=== PATIENT | male | born 1980 | race Caucasian/White ===

== ENCOUNTER 2024-02-28 11:07 | Emergency (ER) | payer OTHER, SELFPAY ==
--- NOTE | ~2024-02-28 | XR_ITS ---
Clinical Indication: Cough PA and lateral views of the chest: Comparison: None Findings: The lungs are clear, without evidence of focal consolidation or pleural effusion. Cardiome diastinal silhouette is within normal limits. Bones and soft tissues are unremarkable. Impression: Normal chest. Reviewed, dictated and finalized at location . Impression: Normal chest.
[2024-02-28 11:50] VITALS: BP 155/103; PULSE 70; RESP 18; TEMP 36.4; O2SAT 100
--- NOTE | 2024-02-28 12:21 | ED.URI ---
HPI - URI/Sore Throat General Chief Complaint: Upper Respiratory Infection Stated Complaint: sinus congestion Time Seen by Provider: 02/28/24 11:53 Related Data Allergies Allergy/AdvReac Type Severity Reaction Status Date / Time No Known Allergies Allergy Unverified 02/28/24 11:07 Course Vital Signs Vital signs: Vital Signs Temperature 36.4 C L 02/28/24 11:50 Pulse Rate 70 02/28/24 11:50 Respiratory Rate 18 02/28/24 11:50 Blood Pressure 155/103 H 02/28/24 11:50 Pulse Oximetry 100 02/28/24 11:50 Oxygen Delivery Room Air 02/28/24 11:50 Temperature 36.4 C L 02/28/24 11:50 Pulse Rate 70 02/28/24 11:50 Respiratory Rate 18 02/28/24 11:50 Blood Pressure 155/103 H 02/28/24 11:50 Pulse Oximetry 100 02/28/24 11:50 Oxygen Delivery Room Air 02/28/24 11:50 Discharge Plan Discharge Clinical Impression: Chronic congestion of paranasal sinus Patient Disposition: Home, Self-Care Condition: Stable Instructions: Antibiotic Form, Sinusitis (ED) Prescriptions: New prednisone 20 mg tablet 40 mg PO DAILY 5 Days Qty: 10 0RF pseudoephedrine HCl 30 mg tablet 30 mg PO Q4-6H PRN (Reason: nasal congestion) Qty: 48 0RF Rx Instructions: DNExceed 4 doses/24h amoxicillin-pot clavulanate 875-125 mg tablet 1 tablet PO Q12H Qty: 14 0RF amoxicillin-pot clavulanate 875-125 mg tablet 1 tablet PO Q12H Qty: 14 0RF prednisone 20 mg tablet 40 mg PO DAILY 5 Days Qty: 10 0RF pseudoephedrine HCl 30 mg tablet 30 mg PO Q4-6H PRN (Reason: nasal congestion) Qty: 48 0RF Rx Instructions: DNExceed 4 doses/24h Follow-up/Referrals: Hussain Aldana MD [Physician] - [facility],SIMON Dodson [Primary Care Provider] - Time of Disposition: 13:12
[2024-02-28] MEDS: dexAMETHasone SOD PHOS INJ 10 MG/ML 1 ML VIAL IM (12:32)
[2024-02-28 13:35] VITALS: BP 144/92; PULSE 71; RESP 19; TEMP 36.7; O2SAT 99
== END 2024-02-28 13:36 | disposition home or self-care (01) ==
PROVIDERS: Emergency Provider Nurse Practitioner Family; PCP Physician Assistant
DX: R09.81 Nasal congestion (principal)
CPT/HCPCS: 71046; 96372; 99283; J1100

== ENCOUNTER 2024-05-13 13:14 | Outpatient (CLI) | payer OTHER, SELFPAY ==
--- NOTE | ~2024-05-13 | CT_ITS ---
EXAMINATION: CT soft tissue neck w con DATE: 05/13/2024 13:48 INDICATION: Chronic ethmoid sinusitis. TECHNIQUE: Computed tomography (CT) of the neck was performed with 75 mL Omnipaque-350 intravenous co ntrast. Automated exposure control and iterative reconstruction technique were employed. The dose-tashi gth product was 606.21 mGy-cm. COMPARISON: None FINDINGS: There are no pathologically enlarged lymph nodes. There is mild plaque in the proximal inte rnal arteries is 0% stenosis relative to normal distal artery lumen diameters. There is a mucous rete ntion cyst in left maxillary sinus. There is mild mucosal thickening in the left anterior ethmoid sin uses. There is rightward deviation of the nasal septum. There is aj bullosa involving left middle turbinate. The ostiomeatal units are patent. The mastoid air cells are normal. IMPRESSION: 1. Mucous retention cyst in left maxillary sinus and mild mucosal thickening in the left anterior eth moid sinuses. 2. Rightward deviation of the nasal septum. Reviewed, dictated and finalized at location A. IMPRESSION: 1. Mucous retention cyst in left maxillary sinus and mild mucosal thickening in the left anterior ethmoid sinuses. 2. Rightward deviation of the nasal septum.
[2024-05-13 13:41] LABS: Estimated Glomerular Filt Rate > 60
== END 2024-05-13 13:15 | disposition home or self-care (01) ==
PROVIDERS: PCP Physician Assistant; Visit Provider Otolaryngology
DX: J32.2 Chronic ethmoidal sinusitis (principal); J38.7 Other diseases of larynx; J34.2 Deviated nasal septum
CPT/HCPCS: 70491; Q9967

== ENCOUNTER 2025-04-09 07:56 | Observation (INO) | payer SELFPAY ==
[2025-04-09] VITALS (9 sets, daily range): BP systolic 129–174; BP diastolic 75–106; PULSE 73–95; RESP 12–29; TEMP 36.5–36.7; O2SAT 94–100; BMI 28.9
--- NOTE | ~2025-04-09 | US_ITS ---
EXAMINATION: US pelvic limited DATE: 04/10/2025 09:48 INDICATION: Possible groin abscess. Patient reports a recently ruptured cystic lesion draining to the skin at this location. TECHNIQUE: Multiple grayscale and color Doppler images of the region of concern at the right groin we re obtained. COMPARISON: CT dated 04/09/2025 FINDINGS: Ill-defined region of reticular decreased echogenicity in the subcutaneous fat at the region of fidel rn. There is a hypoechoic tract extending towards the skin surface. No discrete fluid collection to s uggest abscess however this could represent inflammatory edema or residual phlegmonous change at the site of a reportedly recently drained cyst or abscess. No other abnormal masses or fluid collections identified. IMPRESSION: 1. Residual inflammatory stranding or phlegmonous change at the site of a reportedly recently rupture d and draining abscess. No residual abscess cavity appreciated. Reviewed, dictated and finalized at location B. IMPRESSION: 1. Residual inflammatory stranding or phlegmonous change at the site of a repor tedly recently ruptured and draining abscess. No residual abscess cavity apprec iated.
--- NOTE | ~2025-04-09 | CT_ITS ---
EXAMINATION: CT abdomen pelvis w con DATE: 04/09/2025 09:18 INDICATION: Epigastric pain TECHNIQUE: Computed tomography (CT) of the abdomen and pelvis was performed with 100 mL Omnipaque-350 intravenous contrast. Automated exposure control and iterative reconstruction technique were employe d. The dose-length product was 542.44 mGy-cm. COMPARISON: None FINDINGS: Mild dependent atelectasis in bilateral lower lobes. Heart size is normal. No pericardial or pleural effusion. Small sliding-type hiatal hernia versus wall distal esophageal wall thickening. Mild diffus e hepatic steatosis with focal sparing along the gallbladder fossa. Gallbladder, spleen, pancreas, bi lateral adrenal glands and kidneys are normal. Accessory right renal artery. There is some mild stran ding in the fat caudal to the duodenal bulb where there is some mild wall thickening and would favor sequela of duodenitis or peptic ulcer disease over acute interstitial pancreatitis. Bowels are otherw ise unremarkable with normal appendix. Bladder is normal. No free intraperitoneal gas or fluid. No pa thologically enlarged abdominal or pelvic lymphadenopathy. Minimal scattered degenerative skeletal ch anges. IMPRESSION: 1. Wall thickening of proximal duodenum with adjacent mild inflammatory stranding suspicious for eith er duodenitis or with differential including acute interstitial pancreatitis and would correlate with lipase levels. 2. Small sliding-type hiatal hernia versus distal esophageal wall thickening is as can be seen with r eflux esophagitis or sequela of vomiting. 3. Diffuse hepatic steatosis. Reviewed, dictated and finalized at location B. IMPRESSION: 1. Wall thickening of proximal duodenum with adjacent mild inflammatory strandi ng suspicious for either duodenitis or with differential including acute inters titial pancreatitis and would correlate with lipase levels. 2. Small sliding-type hiatal hernia versus distal esophageal wall thickening is as can be seen with reflux esophagitis or sequela of vomiting. 3. Diffuse hepatic steatosis.
--- OUTSIDE RECORDS SUMMARY | 2025-04-09 07:59 | XMS_ITS | Clinical Summary ---
Author Organization [facility] Address [address] [place] [address] Phone Care Team Providers Care Tape Recorder Repairer Name Role Phone Kenny Ramos Primary Care Provider [phone] Allergies No known active allergies Medications raNITIdine (ZANTAC) 150 MG Tablet Take 150 mg by mouth 2 times daily. Active metroNIDAZOLE (FLAGYL) 500 MG Tablet Take 1 Tab by mouth 3 times daily. 30 Tab 12/13/2017 Active dicyclomine (BENTYL) 20 MG Tablet Take 1 Tab by mouth every 6 hours. 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 Pulse 78 12/13/2017 10:15 AM 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 Temperature 36.8 C (98.2 F) 12/13/2017 8:01 AM 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 Respiratory Rate 18 12/13/2017 8:01 AM 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 Oxygen Saturation 99% 12/13/2017 10:15 AM 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 Inhaled Oxygen Concentration - - Weight 70.3 kg (155 lb) 12/13/2017 8:01 AM 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 Height 170.2 cm (5' 7) 12/13/2017 8:01 AM 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 Body Mass Index 24.28 12/13/2017 8:01 AM 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 Plan of Treatment Health Maintenance Due Date Last Done Comments Hepatitis C Virus (HCV) Screening 1979 TdaP Immunization 1979 Human Papillomavirus (HPV) Immunization (1 - Male 3-dose series) 1994 Hepatitis B Immunization (1 of 3 - 19+ 3-dose series) 1998 Cologuard 2024 Colonoscopy 2024 Colorectal Cancer Screening 2024 Immunochemical Fecal Occult Blood 2024 018 SARS-COV-2 Immunization ( season) 2024 01/13/2021 Influenza Immunization (Seas on Ended) 2025 Respiratory Syncytial Virus (RSV) Immunization (Adult) (1 - 1-dose 75+ series) 2054 Meningococcal Immunization (ACWY) Aged Out No longer eligible based on patient's age to complete this topic Pneumococcal Immunization Combined Aged Out No longer eligible based on patient's age to complete this topic Rotavirus Immunization Aged Out No lo nger eligible based on patient's age to complete this topic Procedures Procedure Name Priority Date/Time Associated Diagnosis Comments STOOL, OCCULT BLOOD, DIAGNOSTIC, VIA GUAIAC STAT 12/13/2017 8:22 AM 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 from Last 3 Months or Most Recently Relevant to Health Maintenance Results * (ABNORMAL) Stool Occult Blood - Diagnostic (12/13/2017 8:22 AM 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) OCCULT BLOOD DIAG Positive(A ) Negative 12/13/2017 8:40 AM 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 [facility] Stool specimen (specimen) Non-Phlebotomy Collection / Unknown 12/13/2017 8:22 AM 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 12/13/2017 8:30 AM 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 us Tacos Perla MD BODY FLUIDS & STOOLS ORDERABLES Final Result [facility] [address] [place] [address] from Last 3 Months or Most Recently Relevant to Health Maintenance Insurance [employer] Care Teams Tape Recorder Repairer Relationship Specialty Start Date End Date Kenny Ramos, CEDRIC [address] [place] [id number] PCP - General Physician Research Center Director 12/13/17
--- OUTSIDE RECORDS SUMMARY | 2025-04-09 07:59 | XMS_ITS | Clinical Summary ---
Author Organization 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 Gender Identity Not on file Sexual Orientation Not on file Plan of Treatment Health Maintenance Due Date Last Done Comments Colorectal Cancer Screening Colonoscopy (10 Years) 1979 Annual Physical 1982 Hepatitis C 1997 DTaP, Tdap and Td Vaccines ( 1 - Tdap) 1998 Hepatitis B Vaccines (1 of 3 - 19+ 3-dose series) 1998 COVID-19 Vaccine ( - 2023-2 5 season) 2024 HPV Vaccines Aged Out No longer eligi ble based on patient's age to complete this topic Meningococcal B Vaccine Aged Out No l onger eligible based on patient's age to complete this topic Meningococcal Vaccine Aged Out No carmine nick eligible based on patient's age to complete this topic Pneumococcal Vaccine: Pediat rics (0 to 5 Years) and At-Risk Patients (6 to 49 Years) Aged Out No longer eligible b ased on patient's age to complete this topic RSV Immunizations Under 20 Months Aged Out No longer eligible based on patient's age to complete this topic
--- OUTSIDE RECORDS SUMMARY | 2025-04-09 07:59 | XMS_ITS | Clinical Summary ---
Author Organization [facility] Address [address] [place] [address] Care Team Providers Care Singer And Unloader Name Role Phone Unavailable Primary Care Provider Unavailabl e Source Comments [facility],non-owned Affiliates and Associated Physician Practices is amultiple site organization consisting of ambulatory clinics and hospital sitesin [place], [place] and [place]. This disclosure is being madepursuant to the Care Everywhere program and may not contain all information available regarding this patient. Last updated 18.[facility] Allergies No known active allergies Medications * Be aware that medications may not be up to date on this document. Alwaysverify current medications with the patient. 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 Gender Identity Not on file Sexual Orientation Not on file Last Filed Vital Signs Vital Sign Reading Time Taken Comments Blood Pressure 112/70 03/21/2019 12:19 PM CDT Pulse 82 03/21/2019 12:19 PM CDT Temperature 37.2 C (98.9 F) 03/21/2019 12:19 PM CDT Respiratory Rate 17 03/21/2019 12:19 PM CDT Oxygen Saturation 95% 03/21/2019 12:19 PM CDT Inhaled Oxygen Concentration - - Weight 76.2 kg (168 lb) 03/21/2019 12:19 PM CDT Height 172.7 cm (5' 8) 03/21/2019 12:19 PM CDT Body Mass Index 25.54 03/21/2019 12:19 PM CDT Plan of Treatment Health Maintenance Due Date Last Done Comments COLOGUARD (AGES 45-75) - COL ON CA SCREENING 1979 COLON MONITORING 1979 COLONOSCOPY - COLON CA SCREENING 1979 CT COLONOGRAPHY - COLON CA SCREENING 1979 Colorectal Cancer Screening 1979 FIT - COLON CA SCREENING 1979 FLEX SIG - COLON CA SCREENING 1979 LIPID TESTING 1979 HIV SCREENING 1994 HEPATITIS C SCREENING 05/25/1997 DTAP/TDAP/TD VACCINES (1 - Tdap) 1998 HEPATITIS B VACCINE (1 of 3 - 19+ 3-dose series) 1998 COVID-19 VACCINE ( - 2023-2 5 season) 2024 DEPRESSION SCREENING 10/09/2024 INFLUENZA VACCINE (Season Ended) 2025 ZOSTER VACCINE (1 of 2) 2029 HIB VACCINE Aged Out No longer eligi ble based on patient's age to complete this topic HPV VACCINE Aged Out No longer eligi ble based on patient's age to complete this topic MENINGOCOCCAL (Group B) VACC INE SHARED DECISION-MAKING Aged Out No longer eligibl e based on patient's age to complete this topic MENINGOCOCCAL GROUPS A/C/Y/W VACCINE Aged Out No longer eligible b ased on patient's age to complete this topic PNEUMOCOCCAL VACCINE Aged Out No long er eligible based on patient's age to complete this topic
--- OUTSIDE RECORDS SUMMARY | 2025-04-09 07:59 | XMS_ITS | Clinical Summary ---
Author Organization [facility] Address [address] [place] [address] Care Team Providers Care Legal Writing Professor Name Role Phone Kenny Ramos Primary Care Provider Allergies No known active allergies Medications HYDROcodone-acet aminophen (NORCO) 5-325 mg per tabletIndication s:Pain Take 1 tablet by mouth every 6 (six) hours as needed for pain 12 tablet 04/28/2022 Active Medical History Medical History Date Comments Asthma Social History Tobacco Use Types Packs/Day Years Used Date Smoking Tobacco: Never Smokeless Tobacco: Never Alcohol Use Standard Drinks/Week Comments Not Currently 0 (1 standard drink = 0.6 oz pur e alcohol) Personal Safety Answer Date Recorded Have you ever been in or are you currently in a harmful physical or emotional relationship or is someone making you feel afraid or unsafe? 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 Gender Identity Not on file Sexual Orientation Not on file Obstetrics History Last Filed Vital Signs Vital Sign Reading Time Taken Comments Blood Pressure 139/90 07/21/2023 10:20 PM CDT Pulse 96 07/21/2023 10:20 PM CDT Temperature 36.3 C (97.3 F) 07/21/2023 10:20 PM CDT Respiratory Rate 20 07/21/2023 10:20 PM CDT Oxygen Saturation 98% 07/21/2023 10:20 PM CDT Inhaled Oxygen Concentration - - Weight 81.6 kg (180 lb) 07/21/2023 10:20 PM CDT Height 170.2 cm (5' 7) 07/21/2023 10:20 PM CDT Body Mass Index 28.19 07/21/2023 10:20 PM CDT Plan of Treatment Health Maintenance Due Date Last Done Comments Colon Cancer Screening-Colonoscopy 1979 Depression Screening 1979 Hepatitis C Screening 1979 DTaP/Tdap/Td Vaccine (1 - Tdap) 1990 Hepatitis B Screening 1997 Regular Well Visit/Exam 18-64 1997 Covid-19 Vaccine (2 - 2023-2 5 season) 2024 01/13/2021 Influenza Vaccine (Season Ended) 2025 HPV Vaccines Aged Out No longer eligi ble based on patient's age to complete this topic Pneumococcal vaccine <65 Aged Out No longer eligible based on patient's age to complete this topic Insurance [employer] OTHER [employer] OTHER [employer] MD [id number] Care Teams Legal Writing Professor Relationship Specialty Start Date End Date Kenny Ramos PA [address] [place] [address] PCP - General 04/28/22
--- OUTSIDE RECORDS SUMMARY | 2025-04-09 07:59 | XMS_ITS | Data Portability ---
[facility] [address] [place] [address] Care Team Providers Care Psychology Teacher Name Role Phone CATHY RAMOS Primary Care Provider Assessment No assessment recorded. Plan of Treatment Reminders Order Date Submit Date Provider Last Modified By Organization Details Last Modified Time Details Appointments None recorded. Lab CBC 2022 023 [facility], [address] [place] [address], [facility] [address], [place], [address], 3 06:19:59 CMP, serum or plasma 2022 023 [facility], [address] [place] [address], [address], [place], [address], 3 06:19:58 lipid panel, serum 2022 023 [facility], [address] [place] [address], [address], [place], [address], 3 06:19:57 Referral None recorded. Procedures None recorded. Surgeries None recorded. Imaging None recorded. Medication Orders sulfametho xazole 800 mg-trimeth oprim 160 mg tablet 2024 025 [id number], [address], [place], [place], [id number], 5 14:46:10 valacyclov ir 1 gram tablet 2022 023 [id number], [address], [place], [place], [id number], 3 12:24:31 azithromyc in 500 mg tablet 2022 [facility] #[id number], [address], [place], [place], [id number], 5 14:30:07 azithromyc in 500 mg tablet 2022 [facility] #[id number], [address], [place], [place], [id number], 5 14:30:07 codeine 10 mg-guaifen esin 100 mg/5 mL oral liquid 2022 [facility] #[id number], [address], [place], [place], [id number], 3 12:04:09 Ventolin HFA 90 mcg/actuat ion aerosol inhaler 2022 [facility] #74755, [address], [place], [place], [id number], 3 10:39:34 Augmentin 875 mg-125 mg tablet 2020 [facility], [address] [place] [address], [address], [place], [address], 3 10:20:52 Medrol (Cortes) 4 mg tablets in a dose pack 2020 [facility], [address] [place] [address], [address], [place], [address], 3 10:21:00 Patient TargetsNo targets recorded. Patient Instructions Encounter Date Encounter Id Patient Instructions Last Modified By Organization Details Last Modified Time 09/25/2020 [id number] nausea and vomiting: care instructions jnanney Not available 09/25/2020 15:21:27 nausea and vomiting: care instructions jnanney Not available 09/25/2020 15:21:27 advised BRAT diet jnanney Not availabl e 09/25/2020 15:21:27 11/11/2020 [id number] strep throat: care instructions jnanney Not available 11/11/2020 11:00:17 08/03/2023 [id number] learning about high blood pressure jnanney Not available 08/03/2023 10:38:43 09/20/2023 [id number] genital herpes: care instructions jnanney Not available 09/20/2023 12:24:20 04/03/2025 [id number] A healthy lifestyle: care instructions jnanney Not available 04/03/2025 14:46:05 Reason for Referral None Reported. Results Created Date Observation Date Name Description Value Unit Range Abnormal Flag Note LastModifiedBy Organization Detail LastModifiedTime 08/03/2008/03/2023 LIPID PANEL cholesterol, total 236 mg/dL 100-19 9 above high normal Not Available [facility] & [address], [address], 08/04/2023 06:19:57 08/03/2008/03/2023 LIPID PANEL triglyceride s 371 mg/dL 0-149 above high normal Not Available [facility] & [address], [address], 08/04/2023 06:19:57 08/03/2008/03/2023 LIPID PANEL HDL cholesterol 43 mg/dL 40-[address] [facility] & [address], [address], 08/04/2023 06:19:57 08/03/2008/03/2023 LIPID PANEL VLDL cholesterol ronak 74 mg/dL 5-40 above high normal Not Available [facility] & [address], [address], 08/04/2023 06:19:57 08/03/20 23 08/03/2023 LIPID PANEL LDL chol calc ([facility]) 170 mg/dL 0-99 above high normal Not Available [address], [address], 08/04/2023 06:19:57 08/03/20 23 08/03/2023 COMP. METAB OLIC PANEL (14) glucose 143 mg/dL 70-99 above high normal Not Available [address], [address], 08/04/2023 06:19:57 08/03/2008/03/2023 COMP. METAB OLIC PANEL (14) BUN 14 mg/dL 6-24 Not Available [facility] & [address], [address], 08/04/2023 06:19:57 08/03/2008/03/2023 COMP. METAB OLIC PANEL (14) creatinine 0.95 mg/dL 0.76-1 .27 Not Available [address], [address], 08/04/2023 06:19:57 08/03/20 23 08/03/2023 COMP. METAB OLIC PANEL (14) eGFR 101 >=60 Units for eGFR value s are mL/mi n/1.7 3 The eGFR Calcu latio n has not been valid ated for patie nts under the age of 18. If test resul ts are displ ayed for a patie nt under the age of 18, disre karissa that value . Not Available [address], [address], 08/04/2023 06:19:57 08/03/20 23 08/03/2023 COMP. METAB OLIC PANEL (14) BUN/creatini ne ratio 15 9-20 Not Available [address], [address], 08/04/2023 06:19:57 08/03/2008/03/2023 COMP. METAB OLIC PANEL (14) sodium 140 mmol/ L 134-14 4 Not Available [address], [address], 08/04/2023 06:19:57 08/03/2008/03/2023 COMP. METAB OLIC PANEL (14) potassium 4.1 mmol/ L 3.5-5. 2 Not Available [address], [address], 08/04/2023 06:19:57 08/03/2008/03/2023 COMP. METAB OLIC PANEL (14) chloride 101 mmol/ L 96-106 Not Available [address], [address], 08/04/2023 06:19:57 08/03/2008/03/2023 COMP. METAB OLIC PANEL (14) carbon dioxide, total 25 mmol/ L 20-29 Not Available [address], [address], 08/04/2023 06:19:57 08/03/2008/03/2023 COMP. METAB OLIC PANEL (14) calcium 9.5 mg/dL 8.7-10 .2 Not Available [address], [address], 08/04/2023 06:19:57 08/03/2008/03/2023 COMP. METAB OLIC PANEL (14) protein, total 7.2 g/dL 6.0-8. 5 Not Available [address], [address], 08/04/2023 06:19:57 08/03/2008/03/2023 COMP. METAB OLIC PANEL (14) albumin 4.5 g/dL 4.1-5. 1 Not Available [address], [address], 08/04/2023 06:19:57 08/03/20 23 08/03/2023 COMP. METAB OLIC PANEL (14) globulin, total 2.7 g/dL 1.5-4. 5 Not Available [address], [address], 08/04/2023 06:19:57 08/03/2008/03/2023 COMP. METAB OLIC PANEL (14) A/G ratio 2.0 1.2-2. 2 Not Available [address], [address], 08/04/2023 06:19:57 08/03/20 23 08/03/2023 COMP. METAB OLIC PANEL (14) bilirubin, total 0.2 mg/dL 0.0-1. 2 Not Available [address], [address], 08/04/2023 06:19:57 08/03/20 23 08/03/2023 COMP. METAB OLIC PANEL (14) alkaline phosphatase 90 IU/L 44-121 Not Available [address], [address], 08/04/2023 06:19:57 08/03/20 23 08/03/2023 COMP. METAB OLIC PANEL (14) AST (SGOT) 26 IU/L 0-40 Not Available [address], [address], 08/04/2023 06:19:57 08/03/20 23 08/03/2023 COMP. METAB OLIC PANEL (14) ALT (SGPT) 31 IU/L 0-44 Not Available [facility] & [address], [address], 08/04/2023 06:19:57 08/03/2008/03/2023 CARDI OVASC ULAR REPOR T interpretati on Note Suppl ement al repor t is avail able. Not Available [address], [address], 08/04/2023 06:19:58 08/03/2008/03/2023 CARDI OVASC ULAR REPOR T pdf . Not Available [facility] & [address], [address], 08/04/2023 06:19:58 08/03/2008/03/2023 CBC, PLATE LET, NO DIFFE RENTI AL WBC 7.1 x10e3 /uL 3.4-10 .8 Not Available [address], [address], 08/04/2023 06:19:58 08/03/2008/03/2023 CBC, PLATE LET, NO DIFFE RENTI AL RBC 5.62 x10e6 /uL 4.14-5 .80 Not Available [address], [address], 08/04/2023 06:19:58 08/03/2008/03/2023 CBC, PLATE LET, NO DIFFE RENTI AL hemoglobin 16.0 g/dL 13.0-1 7.7 Not Available [address], [address], 08/04/2023 06:19:58 08/03/2008/03/2023 CBC, PLATE LET, NO DIFFE RENTI AL hematocrit 48.8 % 37.5-5 1.0 Not Available [address], [address], 08/04/2023 06:19:58 08/03/2008/03/2023 CBC, PLATE LET, NO DIFFE RENTI AL MCV 87 fL 79-97 Not Available [address], [address], 08/04/2023 06:19:58 08/03/2008/03/2023 CBC, PLATE LET, NO DIFFE RENTI AL MCH 28.5 pg 26.6-3 3.0 Not Available [address], [address], 08/04/2023 06:19:58 08/03/2008/03/2023 CBC, PLATE LET, NO DIFFE RENTI AL MCHC 32.8 g/dL 31.5-3 5.7 Not Available [address], [address], 08/04/2023 06:19:58 08/03/2008/03/2023 CBC, PLATE LET, NO DIFFE RENTI AL RDW 13.1 % 11.5-1 4.5 Not Available [address], [address], 08/04/2023 06:19:58 08/03/2008/03/2023 CBC, PLATE LET, NO DIFFE RENTI AL platelets 254 x10e3 /uL 150-45 0 Mean Plate let Volum e 9.8 fL 8.9-1 2.7 N Not Available [address], [address], 08/04/2023 06:19:58 08/03/2008/03/2023 CBC, PLATE LET, NO DIFFE RENTI AL NRBC 0 % 0-0 Not Available [address], [address], 08/04/2023 06:19:58 02/28/20 24 02/28/2024 XR, chest , 2 view No observ ation record ed. [facility] [address], [place], [address], 02/28/2024 15:10:15 05/13/20 24 05/13/2024 CT, neck, w/ contr ast No observ ation [facility] [address] [facility] [address], [place], [address], 05/13/2024 17:17:53 Result Notes None recorded. Problems No Known Problems Medical Equipment None Reported. Allergies No known drug allergies Medications Name Sig Start Date Stop Date Status Note LastModified by Organization Details LastModified Time Augmentin 875 mg-125 mg tablet Take 1 tablet every 12 hours by oral route for 10 days. 08/03 completed Not Available Not Available Not Available atorvastati n 20 mg tablet TAKE 1 TABLET BY MOUTH EVERY DAY 04/03 completed Not Available Not Available Not Available ibuprofen 800 mg tablet TAKE 1 TABLET BY MOUTH TWICE DAILY WITH FOOD OR MILK active Not Available Not Available No t Available valacyclovi r 1 gram tablet TAKE 1 TABLET BY MOUTH EVERY DAY FOR 7 DAYS. active Not Available Not Available No t Available hydrocodone 5 mg-acetamin ophen 325 mg tablet TAKE 1 TABLET BY MOUTH EVERY 6 HOURS NEEDED PAIN 08/03 completed Not Available Not Available Not Available Medrol (Cortes) 4 mg tablets in a dose pack Take 1 dose pk by oral route. 08/03 completed Not Available Not Available Not Available metronidazo le 500 mg tablet TAKE 1 TABLET BY MOUTH EVERY 12 HOURS FOR 7 DAYS active Not Available Not Available No t Available sulfamethox azole 800 mg-trimetho prim 160 mg tablet Take 1 tablet every 12 hours by oral route for 10 days. 2024 active Not Available Not Available Not Avai lable amoxicillin 500 mg tablet TAKE 1 TABLET BY MOUTH EVERY 12 HOURS FOR 7 DAYS active Not Available Not Available No t Available amoxicillin 875 mg tablet TAKE 1 TABLET BY MOUTH TWICE DAILY UNTIL GONE 08/03 completed Not Available Not Available Not Available codeine 10 mg-guaifene sin 100 mg/5 mL oral liquid TAKE 10 ML BY MOUTH EVERY 4 HOURS NEEDED 09/20 completed Not Available Not Available Not Available albuterol sulfate HFA 90 mcg/actuati on aerosol inhaler INHALE 2 PUFFS BY MOUTH EVERY 4 HOURS active Not Available Not Available No t Available naproxen 500 mg tablet TAKE 1 TABLET BY MOUTH TWICE DAILY FOR 30 DAYS 08/03 completed Not Available Not Available Not Available azithromyci n 500 mg tablet Take 1 tablet every day by oral route for 3 days. 04/03 completed Not Available Not Available Not Available ID NOW COVID-19 Test Kit TEST DIRECTED 08/03 completed Not Available Not Available Not Available Vitals Date Recorded Body weight Oxygen saturation Oxygen saturation in Arterial blood by Pulse oximetry Heart rate Body mass index (BMI) Body height Systolic blood pressure Diastolic blood pressure Provider Name and Address Organization Details Last Updated DateTime 5 63558.4 7 g 96 % 96 % 98 /min 31.3 kg/m2 170.18 cm 138 mm[Hg] 84 mm[Hg] Clarissa Cid MA [facility] 5 14:34:32 Date Recorded Systolic blood pressure Diastolic blood pressure Provider Name and Address Organization Details Last Updated DateTime 08/03/2023 138 mm[Hg] 78 mm[Hg] Cathy Ramos PA-C Attn: [address]ing[address] [place], [address], [facility] 08/03/2023 10:32:13 Date Recorded Body weight Body mass index (BMI) Body height Oxygen saturation Oxygen saturation in Arterial blood by Pulse oximetry Heart rate Provider Name and Address Organization Details Last Updated DateTime 3 40402.2 9 g 31 kg/m2 170.18 cm 96 % 96 % 91 /min Clarissa Cid MA [facility] 3 10:20:44 Date Recorded Body height Body mass index (BMI) Body weight Heart rate Respiratory rate Oxygen saturation Oxygen saturation in Arterial blood by Pulse oximetry Systolic blood pressure Diastolic blood pressure Provider Name and Address Organization Details Last Updated DateTime 3 170.18 cm 30.9 kg/m2 50130.8 g 90 /min 14 /min 95 % 95 % 133 mm[Hg] 83 mm[Hg] Nely Craig MA [place] [facility] 12:06:05 Social History Question Answer Notes LastModified by Organizat ion Details LastModified Time Tobacco Smoking Status Former Smoker Marijuana Clarissa Cid MA null, [place] [facility] 08/03/2023 10:21:48 What Is Your Level Of Caffeine Consumption? Heavy Information not available 09/25/2020 How Much Tobacco Do You Chew? None Information not available 09/25/2020 What Type Of Diet Are You Following? REGULAR Information not available 09/25/2020 Which Illicit Or Recreational Drugs Have You Used? Marijana Information not available 09/25/2020 Marital Status Informatio n not available 09/25/2020 What Was The Date Of Your Most Recent Tobacco Screening? 04/03/2025 Information not available 04/03/2025 What Is Your Relationship Status? Information not available 08/03/2023 How Much Tobacco Do You Smoke? No Information not available 09/25/2020 General Stress Level High Information not available 09/25/2020 Has Tobacco Cessation Counseling Been Provided? No Information not available 08/03/2023 On What Date Was Tobacco Cessation Counseling Provided? 04/03/2025 Information not available 04/03/2025 Sex: Male Functional Status Question Answer Note LastModified by Organizat ion Details LastModified Time Do you use any illicit or recreational drugs? Yes Marijuana Information not available 08/03/2023 Do you or have you ever used any other forms of tobacco or nicotine? No Information not available 08/03/2023 What is your level of alcohol consumption? Occasional 1 or 2 a week a drink of whiskey Information not available 09/25/2020 Do you or have you ever used smokeless tobacco? Never used smokeless tobacco Information not available 09/25/2020 Are you currently employed? 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 Never used electronic cigarettes Information not available 09/25/2020 Mental Status Question Answer Note LastModified by Organization D etails LastModified Time Do you feel stressed (tense, restless, nervous, or anxious, or unable to sleep at night)? [id number] Information not available 08/03/2023 Family History Nothing Reported. Medical History Condition Response Coronary Artery Disease N Other N High Blood Pressure N Atrial Fibrillation N Thyroid Problems N Kidney or Bladder Problems N GI Problems N Depression N COPD N Blood Clots N Skin Problems N Eating Disorder N Anemia N Heart Attack ([place]) N Diabetes N Anxiety Disorder N Muscle, Joint, or Bone Problems N Seizures/Epilepsy N Acid Reflux (GERD) N Cancer N Stroke N Asthma Y Allergies N ADHD N Substance Abuse N High Cholesterol N Hepatitis N Liver Disease N Schizophrenia N Headaches N Osteoporosis N Heart Failure N Immunizations Vaccine Type Date Status Note Provider Nam e and Address Organization Details Recorded Time COVID-19 vaccine, vector-nr, rS-Ad26, PF, 0.5 mL 01/13/2021 completed Not Available [facility] 14:25:37 Past Encounters Encounter ID Performer Location Encounter Start Date Encounter Closed Date Diagnosis/Indication Diagnosis SNOMED-CT Code Diagnosis ICD10 Code Diagnosis Note [id number] SAMANTHA Bhatia [facility] [address] [place] [address] 06/02/2016 15:37:52 06/03/2016 17:33:30 [id number] Mustapha Warren MD [facility] [address] [place] [address] 09/25/2020 12:04:53 09/25/2020 15:28:48 Nausea 107464107 R11.0 [id number] SAMANTHA Bhatia [address] [place] [address] 11/11/2020 09:45:00 11/19/2020 11:40:35 Streptococcal sore throat 03642275 J02.0 [id number] SAMANTHA Bhatia [address] [place] [address] 08/03/2023 10:01:38 08/07/2023 15:47:33 Acute bronchitis with bronchospasm 93200522 J20.8 Essential hypertension 45143003 I10 [id number] Cathy Ramos PA-C [facility] [address] [place] [address] 09/20/2023 11:58:10 09/25/2023 17:40:37 Acute bronchitis with bronchospasm 19850120 J20.8 Genital he rpes simplex 17403906 A60.02 [id number] Mustapha Warren MD [facility] [address] [place] [address] 04/03/2025 14:24:00 04/07/2025 09:33:55 Abscess 611092745 L02.91 Obese class I 5085103141 87477 E66.811 Health Concerns Section Related Observation LastModified by Organization Detai ls LastModified Time None Recorded Concern Status LastModified by Organization Details LastModified Time None Recorded Advance Directives Directive None Recorded Payers Insurance Date Sequence Insurance Name Policy Number Policy Apple Covered Member ID Apple Member ID Guarantor Name 04/03/2025 1 [employer] - MULTIPLAN (LIMITED BENEFIT PLAN) [id number] Syd [employer]pearl [id number] Syd [employer] 12/01/2023 1 [facility] [id number] [place] Carolann [id number] Syd [employer] 04/03/2025 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 Cathy Ramos PA-C Attn: [address] [place], [address], [facility] 09/25/2020 15:22:01 11/11/2020 text/html Sore throat, fever, swollen lymph nodes, body aches, decreased appetite that started 3 days ago. COVID test on 11/10 was negative. Throat is still a little sore when swallowing and has swollen lymph nodes.. other symptoms resolved. Patient had look in his throat for exudate but could not see anything as tonsils and mouth were so swollen. Also has a productive cough with clear phlegm. Dayquil helps a little. has similar symptoms but to a lesser extent. Hx of step throat as child and adult. Did not get flu shot this year. Cathy Ramos PA-C Attn: [address] [place], [place], [address] [place] [address], [facility] 11/11/2020 11:03:31 08/03/2023 text/html chest congestion and cough...cough syrup helps a little but cant sleep...no fever..only chest.. Cathy Ramos PA-C Attn: [address] [place], [place], [address] [place] [address], [facility] 08/03/2023 10:40:21 09/20/2023 text/html chest congestion for 2 months now...mucinex DM ongoing...doesnt feel badly though...also needs refill of valtrex Cathy Ramos PA-C Attn: [address] [place], [place], [address] [place] [address], [facility] 09/20/2023 12:25:42 04/03/2025 text/html has an abscess o n rt leg a week ago..no treatment yet..building a new house.. Cathy Ramos PA-C Attn: [address]ing[address] [place], [place], [address] [place] [address], [facility] 04/03/2025 14:46:46
--- OUTSIDE RECORDS SUMMARY | 2025-04-09 07:59 | XMS_ITS | Referral Summary ---
Author Organization [facility] Address [address] [place] [address] Care Team Providers Care Manager Telecom Name Role Phone Kenny Ramos Primary Care Provider [phone] Allergies No known active allergies Medications HYDROcodone-acet aminophen (NORCO) 5-325 mg per tabletIndication s:Pain Take 1 tablet by mouth every 6 (six) hours as needed for pain 12 tablet 04/28/2022 Active Social History Tobacco Use Types Packs/Day [...] on file Legal Sex Male 7:00 PM RN MDS Gender Identity Not on file Sexual Orientation [...] 07/21/2023 10:20 PM CDT Plan of Treatment Not on file Insurance MULTIPLAN CARE OTHER MULTIPLAN CARE OTHER COMMERCIAL GENERIC MD JOSHUA [id number] Care Teams Manager Telecom Relationship Specialty Start Date End Date Kenny Ramos PA [address] [place] [address] PCP - General 04/28/22
[2025-04-09] MEDS: SODIUM CHLORIDE 0.9% IV 1,000 ML 999 ML IV CONT ×2 (08:16→09:52)
[2025-04-09] MEDS: ONDANSETRON INJ 4 MG/2 ML VIAL IV PUSH ×4 (08:17→22:52)
[2025-04-09] MEDS: MORPHINE SULFATE (*CRX) 4 MG/ML INJ IV PUSH ×2 (08:18→12:26)
--- NOTE | 2025-04-09 08:26 | ED_ITS ---
HPI - General Adult General Chief complaint: Nausea/Vomiting/Diarrhea Stated complaint: N/V Time Seen by Provider: 04/09/25 07:59 History of Present Illness HPI narrative: Patient is a 44-year-old male who presents ER with epigastric pain. Significantly increased last night. Reports over last week he has been taking Tylenol and ibuprofen to treat dental pain. He has been started on Bactrim for dental infection. He started vomiting and having diarrhea. He thinks his stools dark black. No history of gastric ulcer. No history of pancreatitis. Denies fevers or chills or sweats. Pain is sharp in aching nonradiating. Patient reports field belch and then have severe reflux going up into his chest. No new abdominal distention. No history of abdominal surgery. Related Data Home Medications ?Medication ?Instructions ?Recorded ?Confirmed ?Last Taken ?Type esomeprazole magnesium 20 mg 40 mg PO DAILY 03/11/24 03/11/24 Unknown History capsule,delayed release (Nexium) Allergies Allergy/AdvReac Type Severity Reaction Status Date / Time No Known Allergies Allergy Verified 04/09/25 08:08 Review of Systems 2 Review of Systems: All systems reviewed & are unremarkable except as noted in HPI and below Constitutional: Constitutional: Reports no additional constitutional complaints ENT: Reports system reviewed and no additional complaints, except as documented Cardiovascular: Cardiovascular: Reports no additional cardiovascular complaints Respiratory: Respiratory: Reports no additional respiratory complaints Gastrointestinal: Gastrointestinal: Reports no additional gastrointestinal complaints Genitourinary: Genitourinary: Reports no additional male genitourinary complaints [facility] Past Medical History Medical History (Updated 04/09/25 @ 12:59 by Tod Glover MD) Asthma Surgical History Surgical History (Updated 04/09/25 @ 08:31 by Tod Glover MD) No history of previous surgery Social History Social History Smoking status: Former smoker Alcohol intake: current Substance use: current Substance use type: marijuana Do You Feel Safe in your Home?: Yes Lack of Transportation: No Lack of Food: Never True Current Housing: I Have Housing Concerned About Future Housing: No Difficulty Paying Gas/Electric Bills: No Difficulty Paying for Meds: No Currently Unemployed: No Education: High School Diploma/GED Difficulty w/ Childcare or Family Care: No Exam 2 Narrative: GENERAL: Uncomfortable-appearing, well-nourished, and in mild distress. HEAD: Normocephalic, atraumatic. ENT: Nares clear, no rhinorrhea or epistaxis. Mucous membranes moist. CHEST: Clear to auscultation. No respiratory distress. HEART: Regular rate and rhythm. No murmur heard. Normal peripheral pulses. ABDOMEN: Soft, mild epigastric tenderness, nondistended, normal active bowel sounds. Digital rectal exam with Hemoccult negative stool that is normal in appearance. EXTREMITIES: Normal range of motion. No edema. SKIN: Warm, dry, no rash. NEURO: Alert and oriented x3. PSYCH: Normal mood and affect. Course Course Emergency Course: Persistent pain despite 8 of morphine. Protonix given. GI consulted. Admit for observation the hospitalist service. Patient may be developing blood ulcer from NSAID use. Vital Signs Vital signs: Vital Signs Temperature 97.7 F 04/09/25 08:00 Pulse Rate 85 04/09/25 08:00 Respiratory Rate 20 04/09/25 08:00 Blood Pressure 174/106 H 04/09/25 08:00 Pulse Oximetry 94 04/09/25 08:00 Oxygen Delivery Room Air 04/09/25 08:00 Temperature 97.7 F 04/09/25 08:00 Pulse Rate 85 04/09/25 11:10 Respiratory Rate 13 04/09/25 11:10 Blood Pressure 129/75 04/09/25 11:10 Pulse Oximetry 96 04/09/25 11:10 Oxygen Delivery Room Air 04/09/25 08:00 Medical Decision Making Vital Signs Vital Signs: Vital Signs Temperature 97.7 F 04/09/25 08:00 Pulse Rate 85 04/09/25 08:00 Respiratory Rate 20 04/09/25 08:00 Blood Pressure 174/106 H 04/09/25 08:00 Pulse Oximetry 94 04/09/25 08:00 Oxygen Delivery Room Air 04/09/25 08:00 Temperature 97.7 F 04/09/25 08:00 Pulse Rate 85 04/09/25 11:10 Respiratory Rate 13 04/09/25 11:10 Blood Pressure 129/75 04/09/25 11:10 Pulse Oximetry 96 04/09/25 11:10 Oxygen Delivery Room Air 04/09/25 08:00 Lab Data 04/09/25 08:13 04/09/25 08:13 Labs: Lab Results 04/09/25 04/09/25 04/09/25 Range/Units 08:13 10:22 10:44 WBC 10.7 H (4.5-10.0) K/mm3 RBC 5.76 (4.6-6.20) M/mm3 Hgb 16.2 (14.0-18.0) g/dL Hct 46.9 (42.0-52.0) % MCV 81.4 (80-100) fl MCH 28.1 (26-34) pg MCHC 34.5 (32-36) g/dl RDW 12.5 (11.5-14.5) % Plt Count 370 (150-375) k/mm3 MPV 9.2 (7.4-10.4) fl Immature Gran % (Auto) 0.6 H (0-0.5) % Neut % (Auto) 76.8 H (45.5-73.1) % Lymph % (Auto) 17.2 L (18.3-44.2) % [place] % (Auto) 5.2 (2.6-8.5) % Eos % (Auto) 0.0 (0-4.4) % Baso % (Auto) 0.2 (0.2-1.2) % Lymph # (Auto) 1.84 (0.9-3.2) K/mm3 [place] # (Auto) 0.6 (0.1-0.6) K/mm3 Eos # (Auto) 0.0 (0-0.3) K/mm3 Baso # (Auto) 0.0 (0.0-0.1) K/mm3 Abs Immat Gran (auto) 0.06 H (0.00-0.031) K/mm3 Absolute Neuts (auto) 8.2 H (1.3-6.7) K/mm3 Absolute Nucleated RBC 0.000 (0.0-0.012) K/mm3 Nucleated RBC % 0.0 (0.0-0.2) % Sodium 134 L (137-145) mmol/L Potassium 3.8 (3.4-5.0) mmol/L Chloride 96 L (98-107) mmol/L Carbon Dioxide 17 L (22-30) mmol/L Anion Gap 21 H (4-12) mmol/L BUN 15 (9-20) mg/dL Creatinine 0.78 (0.7-1.3) mg/dL Estim Creat Clear Calc 104 ml/min Estimated GFR > 60 (59 - ) Glucose 345 H (65-110) mg/dL Lactic Acid 3.4 H 1.5 (0.7-2.0) mmol/L Calcium 9.7 (8.4-10.2) mg/dL Total Bilirubin 0.9 (0.2-1.3) mg/dL AST 71 H (17-59) U/L ALT 125 H (6-50) U/L Alkaline Phosphatase 121 (38-126) U/L Total Protein 8.6 H (6.3-8.2) g/dL Albumin 4.8 (3.5-5.1) g/dL Lipase 97 (23-300) U/L Urine Color Yellow (Yellow) Urine Appearance Clear (Clear) Urine pH 5.5 (5.0-9.0) Ur Specific [place] > 1.045 H (1.001-1.035) Urine Protein Trace (Negative) mg/dL Urine Glucose (UA) 3+ H (Negative) mg/dL Urine Ketones 4+ H (Negative) mg/dL Ur Blood (Man) Negative (Negative) Urine Nitrate Negative (Negative) Urine Bilirubin Negative (Negative) Urine Urobilinogen 0.2 (<2.0) mg/dL Leukocyte Esterase Rfl Negative (Negative) MARCO ANTONIO/UL Urine RBC 0-2 (0-2) /hpf Urine WBC 0-5 (0-3) /hpf Ur Squamous Epith Cells None seen (Few) /hpf Urine Bacteria None seen /hpf Urine Casts 0-2 Blood Type A Positive Antibody Screen Negative Discharge Plan Discharge Clinical Impression: Duodenitis, Acute epigastric pain, Vomiting Patient Disposition: Still a Patient Condition: Stable Patient Language: Angolan Prescriptions: No Action esomeprazole magnesium [Nexium] 20 mg capsule,delayed release(DR/EC) 40 mg PO DAILY prednisone 20 mg tablet 20 mg PO DAILY Qty: 14 1RF Rx Instructions: take 1 daily with breakfast for 10 days; then take 1 every other day for 8 days clindamycin HCl [Cleocin HCl] 300 mg capsule 300 mg PO BID Qty: 20 1RF Rx Instructions: take 1 b.i.d. prednisone 20 mg tablet 40 mg PO DAILY 5 Days Qty: 10 0RF pseudoephedrine HCl 30 mg tablet 30 mg PO Q4-6H PRN (Reason: nasal congestion) Qty: 48 0RF Rx Instructions: DNExceed 4 doses/24h amoxicillin-pot clavulanate 875-125 mg tablet 1 tablet PO Q12H Qty: 14 0RF Follow-up/Referrals: Rachel,SIMON Dodson [Primary Care Provider] -
[2025-04-09 08:33] LABS: Hematocrit 46.9 % (42.0-52.0); Hemoglobin 16.2 g/dL (14.0-18.0); Immature Granulocyte Percent A 0.6 % (0-0.5); Lymphocytes Absolute Auto 1.84 K/mm3 (0.9-3.2); Mean Corpuscular HGB Conc 34.5 g/dl (32-36); Mean Corpuscular Hemoglobin 28.1 pg (26-34); Mean Corpuscular Volume 81.4 fl (80-100); Nucleated Red Blood Cells Absolute Auto 0.000 K/mm3 (0.0-0.012); Nucleated Red Blood Cells Perc 0.0 % (0.0-0.2); Platelet Count Result 370 k/mm3 (150-375); Red Blood Count 5.76 M/mm3 (4.6-6.20); White Blood Count 10.7 K/mm3 (4.5-10.0)
[2025-04-09 08:45] LABS: Alanine Aminotransferase 125 U/L (6-50); Albumin Level 4.8 g/dL (3.5-5.1); Alkaline Phosphatase 121 U/L (38-126); Anion Gap 21 mmol/L (4-12); Aspartate Amino Transferase 71 U/L (17-59); Bilirubin,Total 0.9 mg/dL (0.2-1.3); Blood Urea Nitrogen 15 mg/dL (9-20); Calcium 9.7 mg/dL (8.4-10.2); Carbon Dioxide 17 mmol/L (22-30); Chloride 96 mmol/L (98-107); Estimated CRCL calculation 104 ml/min; Estimated Glomerular Filt Rate > 60; Glucose 345 mg/dL (65-110); Lipase 97 U/L (23-300); Potassium 3.8 mmol/L (3.4-5.0); Sodium 134 mmol/L (137-145); Total Protein 8.6 g/dL (6.3-8.2)
[2025-04-09] MEDS: PANTOPRAZOLE SODIUM IV 40 MG VIAL IV PUSH ×2 (09:52→18:00)
[2025-04-09] MEDS: SODIUM CHLORIDE 0.9% IV 600 ML 999 ML IV CONT (09:52)
[2025-04-09 10:34] LABS: Add Urine Microscopic? YES; Appearance Urine Clear (Clear); Glucose Urine UA 3+ mg/dL (Negative); Leukocyte Esterase Ur Negative LEU/UL (Negative); Nitrate Urine Negative (Negative); Non Pathogenic Casts 0-2; Specific Grav Ur > 1.045 (1.001-1.035)
--- NOTE | 2025-04-09 12:58 | P.HP_ITS ---
H&P: HPI History of Present Illness Date/Time: 04/09/25 12:58 Chief Complaint: Nausea and Vomiting Narrative: 44 y/o M with PMH of asthma presents here with nausea and vomiting. The patient presents here from home on 04/09 for further evaluation of nausea and vomiting. He reports he has been throwing up for the past 24 hours - started Monday. Nausea and vomiting are accompanied by abdominal distension. He denies fever, chills, body aches, constipation, diarrhea, fatigue. He reports GI a history significant for GERD. for which he is post take an ulcer medication but has not been compliant with this for the past month. Of note, he recently had a tooth that was causing issues. He he was started on antibiotics and has been taking ibuprofen 800 mg and Tylenol 1G rotating for the pain and had tooth pulled yesterday. He reports he was taking a lot of NSAIDs prior to the procedure. Initial VS at presentation: 97.7? F, HR 75, R 20, 174/106, and 94% on RA. ED workup showed: WBC 10.7, no anemia, sodium 134, creatinine 0.78 and GFR >60, glucose 345, initial lactic 3.4 -> 1.5, glucose 345, gap 21, and UA showed a high specific gravity with 3+ glucose and 4+ ketones. CT of the abdomen/ pel vis showed wall thickening of the proximal duodenum with adjacent mild inflammatory stranding suspicious for either duodenitis or acute interstitial pancreatitis, small sliding type hiatal hernia versus distal esophageal wall thickening, diffuse hepatic steatosis. Review of Systems Review of Systems: All systems reviewed & are unremarkable except as noted in HPI and below [facility] Past Medical History Medical History (Updated 04/09/25 @ 13:30 by Shaina Garcia APRN) Asthma Surgical History Surgical History (Updated 04/09/25 @ 08:31 by Tod Glover MD) No history of previous surgery Social History Social History Smoking status: Never smoker Alcohol intake: current Drinks per week: 1 Substance use: current Substance use type: marijuana Do You Feel Safe in your Home?: Yes Lack of Transportation: YES Lack of Food: Never True Current Housing: I Have Housing Concerned About Future Housing: No Difficulty Paying Gas/Electric Bills: No Difficulty Paying for Meds: No Currently Unemployed: No Education: High School Diploma/GED Difficulty w/ Childcare or Family Care: No Spiritual care concerns: No Meds Home Medications and Allergies Home Medications ?Medication ?Instructions ?Recorded ?Confirmed ?Type pseudoephedrine HCl 30 mg tablet 30 mg PO Q4-6H PRN nasal 02/28/24 04/09/25 Rx congestion #48 tabs esomeprazole magnesium 20 mg 40 mg PO DAILY 03/11/24 04/09/25 History capsule,delayed release (Nexium) Allergies Allergy/AdvReac Type Severity Reaction Status Date / Time No Known Allergies Allergy Verified 04/09/25 08:08 Vital Signs Vital Signs - 24 hr 04/09/25 08:00 04/09/25 08:07 04/09/25 08:59 Temperature 97.7 F Pulse Rate 85 95 86 Respiratory Rate 20 29 H 14 Blood Pressure 174/106 H 174/106 H 156/105 H Pulse Oximetry 94 96 97 Oxygen Delivery Room Air 04/09/25 09:02 04/09/25 09:51 04/09/25 11:10 Temperature Pulse Rate 92 92 85 Respiratory Rate 19 12 13 Blood Pressure 133/97 H 131/90 129/75 Pulse Oximetry 100 97 96 Oxygen Delivery Exam Const: General: comfortable and no acute distress Other: , male, nontoxic appearance HENMT: Face/Nose/Sinus: Normal nares present Mouth: Yes moist mucous membranes Eyes: General: appearance normal, both eyes and all related structures Sclera: sclerae normal Pupils: Equal, round and reactive pupils present EOM: EOMs intact bilaterally Resp: Effort & Inspection: normal respiratory effort Auscultation: clear to auscultation bilaterally Cardio: Rate: regular rate Rhythm: regular rhythm Other: S1-S2 present without murmur, rub, ectopy GI: Other: abdomen soft, mildly rounded, tender in the epigastric region. Normoactive bowel sounds in all quadrants. Skin: General skin exam: normal color and no rashes or lesions noted Wounds: no wounds Neuro: Speech: normal speech Motor exam (neuro): 5/5 motor strength present throughout Sensory Exam: normal sensation Other: A&O x4 Extrem: General: normal to inspection Psych: Mental Status: mental status grossly normal Affect: normal affect Other: good insight and judgment, pleasant H&P: Results Labs Labs: Short CBC 04/09/25 Range/Units 08:13 WBC 10.7 H (4.5-10.0) K/mm3 Hgb 16.2 (14.0-18.0) g/dL Hct 46.9 (42.0-52.0) % Plt Count 370 (150-375) k/mm3 BMP 04/09/25 08:13 Sodium 134 L Potassium 3.8 Chloride 96 L Carbon Dioxide 17 L BUN 15 Creatinine 0.78 Glucose 345 H Calcium 9.7 Liver Function 04/09/25 Range/Units 08:13 Total Bilirubin 0.9 (0.2-1.3) mg/dL AST 71 H (17-59) U/L ALT 125 H (6-50) U/L Alkaline Phosphatase 121 (38-126) U/L Albumin 4.8 (3.5-5.1) g/dL Urine 04/09/25 Range/Units 10:22 Urine Color Yellow (Yellow) Urine Appearance Clear (Clear) Urine pH 5.5 (5.0-9.0) Ur Specific [place] > 1.045 H (1.001-1.035) Urine Protein Trace (Negative) mg/dL Urine Glucose (UA) 3+ H (Negative) mg/dL Assessment and Plan Assessment and plan (1) Duodenitis: Code(s): K29.80 - Duodenitis without bleeding Status: Acute Assessment and Plan: - CT abdomen/pelvis: 1. Wall thickening of proximal duodenum with adjacent mild inflammatory stranding suspicious for either duodenitis or with differential including acute interstitial pancreatitis and would correlate with lipase levels. 2. Small sliding-type hiatal hernia versus distal esophageal wall thickening is as can be seen with reflux esophagitis or sequela of vomiting. 3. Diffuse hepatic steatosis. - Recent NSAID use and noncompliance with PPI -> raising concerns for possible ulcer development - GI consulted Mylanta every 2-3 hours as needed for pain -> patient reporting improvement clear liquid diet, NPO at midnight for EGD tomorrow for further guided therapy continue IV pantoprazole - start PPI b.i.d. - IV fluids, antiemetics p.r.n., analgesics p.r.n. - monitor renal function electrolytes - NPO (2) Vomiting: Qualifiers: Nausea presence: with nausea Vomiting type: unspecified Qualified Code(s): R11.2 - Nausea with vomiting, unspecified Code(s): R11.10 - Vomiting, unspecified Status: Acute Assessment and Plan: - likely secondary to duodenitis noted on CT/GERD, however may have mild DKA given gap, ketones in urine, and hypoglycemia. Will check beta hydroxy, repeat BMP, and A1c -> A1c significantly elevated, see below anion gap closed and beta hydroxy mildly elevated. - antiemetics p.r.n. (3) Hyperglycemia: Code(s): R73.9 - Hyperglycemia, unspecified Status: Acute Assessment and Plan: NEW DM - initial glucose 345, gap 21, UA showed 4+ ketones - given 3 L bolus in the ED, recheck BMP - check beta hydroxy, repeat BMP, and A1c -> beta hydroxy 0.73, A1c 10.8%, and anion gap closed - Patient denies any history of diabetes. Will consult dietitian and visual educator for further education. - hypoglycemia protocol - POC blood glucose ACHS and HS - correct regimen ordered - moderate dose TIDWM and HS based off BMI Plan Diet: NPO GI Prophylaxis: pantoprazole b.i.d. DVT Prophylaxis: SCDs IV fluids: 3L bolus -> 125 mL/hr Lines/Tubes: peripheral IV Code Status: full code Quality VTE Prophylaxis VTE prophylaxis: mechanical ordered Hospitalist [facility] Advance Care Plan I have confirmed that the patient's Advanced Care Plan is present, code status is documented, or surrogate decision maker is listed in patient medical record.: Yes Medication Reconciliation I have utilized all available resources to obtain, update and review the thierry ents current medications (includes all prescriptions, OTC, herbals, cannabis, and nutritional supplements).: Yes
[2025-04-09] MEDS: SODIUM CHLORIDE 0.9% IV 1,000 ML 125 ML IV CONT ×2 (13:14→21:31)
--- NOTE | 2025-04-09 14:05 | ADMGEN ---
This patient, Syd Bryant, was admitted to 2 Medical Room 261-01. Patient/family oriented to hospital policies and general routines including ID bracelet, bed and alarms, visiting hours, pain management, procedures, bathroom and other care routines, personal items, smoking policy, room service/diet, and visiting hours. Information on how to activate the Rapid Response Team has been discussed. Patient/Family are encouraged to report perceived risks to care and to ask questions if they do not understand what they are told or what they should do.
--- NOTE | 2025-04-09 15:13 | P.CONGI_ITS ---
Assessment and Plan Assessment and plan (1) Acute epigastric pain: Code(s): R10.13 - Epigastric pain Status: Acute Assessment and Plan: This patient's persistent epigastric pain is highly compatible with gastroduodenal injury secondary to prolonged NSAID use, even in the absence of obvious mucosal lesions. Given his history of frequent indigestion and GERD, it's reasonable to suspect gastric or duodenal ulcers, or erosive gastritis. Our immediate plan is to manage his pain and protect the gastric mucosa. We will administer Mylanta every 2-3 hours as needed for pain, as this will provide intraluminal relief and avoid systemic analgesics like morphine, which can complicate the clinical picture. We will also continue intravenous pantoprazole to suppress acid production. The patient will be offered a clear liquid diet until midnight. To definitively clarify the diagnosis and guide further therapy, an EGD will be performed tomorrow . GI Consult Note Consult date/time: 04/09/25 15:13 Reason for consult: Epigastric pain HPI: Syd Bryant is a 44-year-old male with a history of frequent indigestion, GERD, and abdominal bloating. He was in his usual state of health until approximately 10 days ago when he developed a toothache, for which he self- medicated with 3-4 ibuprofen tablets daily. Despite experiencing moderate to severe epigastric pain during this period, he continued ibuprofen use. Yesterday, following a tooth extraction, his epigastric pain acutely worsened and became associated with recurrent nausea and vomiting. He denies fever, melena, hematochezia, or hematemesis and has no prior history of EGD. Admission laboratory results were notable for a WBC of 8.7, Hgb 16.2, Hct 46.9, platelets 370, BUN 15, and creatinine 0.78. An abdominal CT scan revealed wall thickening of the proximal duodenum, consistent with possible duodenitis. Review of Systems 2 Review of Systems: All systems reviewed & are unremarkable except as noted in HPI and below PMFSH Past Medical History Medical History (Updated 04/09/25 @ 13:30 by Shaina Garcia APRN) Asthma Surgical History Surgical History (Updated 04/09/25 @ 08:31 by Tod Glover MD) No history of previous surgery Social History Social History Smoking status: Never smoker Alcohol intake: current Drinks per week: 1 Substance use: current Substance use type: marijuana Do You Feel Safe in your Home?: Yes Lack of Transportation: YES Lack of Food: Never True Current Housing: I Have Housing Concerned About Future Housing: No Difficulty Paying Gas/Electric Bills: No Difficulty Paying for Meds: No Currently Unemployed: No Education: High School Diploma/GED Difficulty w/ Childcare or Family Care: No Spiritual care concerns: No Meds Home Medications and Allergies Home Medications ?Medication ?Instructions ?Recorded ?Confirmed ?Type pseudoephedrine HCl 30 mg tablet 30 mg PO Q4-6H PRN nasal 02/28/24 04/09/25 Rx congestion #48 tabs esomeprazole magnesium 20 mg 40 mg PO DAILY 03/11/24 04/09/25 History capsule,delayed release (Nexium) Allergies Allergy/AdvReac Type Severity Reaction Status Date / Time No Known Allergies Allergy Verified 04/09/25 08:08 Vital Signs Vital Signs - 24 hr 04/09/25 08:00 04/09/25 08:07 04/09/25 08:59 Temperature 97.7 F Pulse Rate 85 95 86 Respiratory Rate 20 29 H 14 Blood Pressure 174/106 H 174/106 H 156/105 H Pulse Oximetry 94 96 97 Oxygen Delivery Room Air 04/09/25 09:02 04/09/25 09:51 04/09/25 11:10 Temperature Pulse Rate 92 92 85 Respiratory Rate 19 12 13 Blood Pressure 133/97 H 131/90 129/75 Pulse Oximetry 100 97 96 Oxygen Delivery 04/09/25 13:15 04/09/25 14:15 Temperature 97.8 F Pulse Rate 89 81 Respiratory Rate 15 18 Blood Pressure 137/97 H 150/95 H Pulse Oximetry 98 100 Oxygen Delivery Exam 2 Const: General: cooperative and healthy appearing Resp: Effort & Inspection: normal respiratory effort and able to speak in complete sentences Auscultation: clear to auscultation bilaterally Cardio: Rate: regular rate Rhythm: regular rhythm GI: Inspection: normal to inspection GI Palp: No No hepatosplenomegaly present Auscultation: normal bowel sounds Rectal Exam: deferred Skin: General skin exam: normal color Psych: Appearance: grossly normal Mental Status: mental status grossly normal Results Labs 04/09/25 08:13 04/09/25 08:13 Labs: Short CBC 04/09/25 Range/Units 08:13 WBC 10.7 H (4.5-10.0) K/mm3 Hgb 16.2 (14.0-18.0) g/dL Hct 46.9 (42.0-52.0) % Plt Count 370 (150-375) k/mm3 BMP 04/09/25 08:13 Sodium 134 L Potassium 3.8 Chloride 96 L Carbon Dioxide 17 L BUN 15 Creatinine 0.78 Glucose 345 H Calcium 9.7 Liver Function 04/09/25 Range/Units 08:13 Total Bilirubin 0.9 (0.2-1.3) mg/dL AST 71 H (17-59) U/L ALT 125 H (6-50) U/L Alkaline Phosphatase 121 (38-126) U/L Albumin 4.8 (3.5-5.1) g/dL Urine 04/09/25 Range/Units 10:22 Urine Color Yellow (Yellow) Urine Appearance Clear (Clear) Urine pH 5.5 (5.0-9.0) Ur Specific [place] > 1.045 H (1.001-1.035) Urine Protein Trace (Negative) mg/dL Urine Glucose (UA) 3+ H (Negative) mg/dL
[2025-04-09] MEDS: MAG HYDROX/AL HYDROX/SIMETH 30 ML UDC PO ×3 (15:28→21:43)
[2025-04-09 15:51] LABS: Hemoglobin A1C 10.8 % (<5.7)
[2025-04-09 17:03] LABS: Anion Gap 11 mmol/L (4-12); Blood Urea Nitrogen 12 mg/dL (9-20); Calcium 8.7 mg/dL (8.4-10.2); Carbon Dioxide 24 mmol/L (22-30); Chloride 103 mmol/L (98-107); Estimated CRCL calculation 113 ml/min; Estimated Glomerular Filt Rate > 60; Glucose 229 mg/dL (65-110); Potassium 3.8 mmol/L (3.4-5.0); Sodium 138 mmol/L (137-145)
[2025-04-09 17:10] LABS: Beta-Hydroxybutyrate/Acetoace. 0.73 mmol/L (0.02-0.27)
[2025-04-09] MEDS: oxyCODONE HCL (*CRX) 2.5 MG TAB IR PO (17:59)
[2025-04-10] VITALS (9 sets, daily range): BP systolic 137–158; BP diastolic 39–100; PULSE 71–88; RESP 14–24; TEMP 36.6–36.9; O2SAT 99–100
[2025-04-10] MEDS: MAG HYDROX/AL HYDROX/SIMETH 30 ML UDC PO ×4 (00:56→19:40)
--- NOTE | 2025-04-10 02:50 | ECG_ITS ---
Test Date: 2025-04-10 03:17:07 Measurements Intervals [place] Rate: 86 P: 52 FL: 143 QRS: 15 QRSD: 83 T: 35 QT: 370 QTc: 445 Interpretive Statements SINUS RHYTHM No previous ECG available for comparison Electronically Signed On 04-10-2025 16:39:33 CDT by Tita Nice
[2025-04-10] MEDS: ONDANSETRON INJ 4 MG/2 ML VIAL IV PUSH ×2 (03:19→14:40)
[2025-04-10] MEDS: BELLADONNA ALK/PHENOB ELIX 10 ML, MAG HYDROX/ALUMINUM HYD/SIMETH 30 ML, LIDOCAINE 2% VI... PO (03:23)
--- NOTE | 2025-04-10 04:17 | PM.EVENT ---
Event Note Event Note Event Note: I was called by this patient's nurse this morning at 0300 with complaints of the patient stating he was having a lot of epigastric pain. Patient has been admitted in the current setting suspected duodenitis and has been evaluated by GI services, Dr. Merino, who will be taking patient to GI lab today for an EGD. It is noted in GI note dated 04/09/2025 that they would prefer to avoid any systemic analgesics such as morphine. They note that it can cause complications in the current treatment. Patient does have oxy IR ordered p.o. as patient was having pain earlier a GI cocktail was ordered that did give the patient some temporary relief. He still complains of pain and the nurse again calls me at 0400 requesting IV pain medications patient does not want to take the oral medicine as it made him feel nauseated previously. She acknowledges that GI does not want the patient to have systemic analgesics such as morphine and asks what she should do. She is advised that patient should be offered his oral medication and treated for nausea along with at as I do not feel comfortable going against the recommendations of a specialist as he is currently under their care as well. Patient is noted to have stable vital signs with blood pressure 137/87, pulse 88, respirations 20, oxygen saturation of 100% on room air and he is afebrile.
[2025-04-10 05:33] LABS: Hematocrit 41.0 % (42.0-52.0); Hemoglobin 13.6 g/dL (14.0-18.0); Immature Granulocyte Percent A 0.5 % (0-0.5); Lymphocytes Absolute Auto 2.08 K/mm3 (0.9-3.2); Mean Corpuscular HGB Conc 33.2 g/dl (32-36); Mean Corpuscular Hemoglobin 27.9 pg (26-34); Mean Corpuscular Volume 84.2 fl (80-100); Nucleated Red Blood Cells Absolute Auto 0.000 K/mm3 (0.0-0.012); Nucleated Red Blood Cells Perc 0.0 % (0.0-0.2); Platelet Count Result 259 k/mm3 (150-375); Red Blood Count 4.87 M/mm3 (4.6-6.20); White Blood Count 11.0 K/mm3 (4.5-10.0)
[2025-04-10 05:52] LABS: Anion Gap 10 mmol/L (4-12); Blood Urea Nitrogen 13 mg/dL (9-20); Calcium 8.1 mg/dL (8.4-10.2); Carbon Dioxide 21 mmol/L (22-30); Chloride 104 mmol/L (98-107); Estimated CRCL calculation 125 ml/min; Estimated Glomerular Filt Rate > 60; Glucose 231 mg/dL (65-110); Sodium 135 mmol/L (137-145)
[2025-04-10 06:01] LABS: Magnesium 2.0 mg/dL (1.6-2.3); Potassium 3.6 mmol/L (3.4-5.0)
[2025-04-10] MEDS: SODIUM CHLORIDE 0.9% IV 1,000 ML 125 ML IV CONT ×2 (06:08→20:54)
--- NOTE | 2025-04-10 06:53 | WPDGIPROGNO ---
Progress Note: A&P Assessment and Plan (1) Acute epigastric pain: Code(s): R10.13 - Epigastric pain Status: Acute Assessment and Plan: Patient with severe epigastric pain episodes, presumably associated to prolonged ingestion of ibuprofen. Will continue to administer GI cocktail and scope later today. Subjective Date/time seen: 04/10/25 06:53 Interval history: Patient continued to have episodes of sharp epigastric pain, radiating to the chest. An EKG was obtained by the nursing staff and interpreted as normal. He states that GI cocktail relieves the symptoms at least partially. Exam Narrative: abdomen: Unchanged from baseline, no rebound tenderness, Objective Data Vital Signs Vital Signs: Vital Signs - 24 hr 04/09/25 08:00 04/09/25 08:07 04/09/25 08:59 Temperature 97.7 F Pulse Rate 85 95 86 Respiratory Rate 20 29 H 14 Blood Pressure 174/106 H 174/106 H 156/105 H Pulse Oximetry 94 96 97 Oxygen Delivery Room Air 04/09/25 09:02 04/09/25 09:51 04/09/25 11:10 Temperature Pulse Rate 92 92 85 Respiratory Rate 19 12 13 Blood Pressure 133/97 H 131/90 129/75 Pulse Oximetry 100 97 96 Oxygen Delivery 04/09/25 13:15 04/09/25 14:15 04/09/25 20:47 Temperature 97.8 F 98.1 F Pulse Rate 89 81 73 Respiratory Rate 15 18 20 Blood Pressure 137/97 H 150/95 H 135/83 Pulse Oximetry 98 100 100 Oxygen Delivery 04/09/25 21:34 04/10/25 02:54 04/10/25 04:47 Temperature 98.3 F 98.0 F Pulse Rate 88 76 Respiratory Rate 20 18 Blood Pressure 137/87 139/92 H Pulse Oximetry 100 99 Oxygen Delivery Room Air Intake/Output Intake/Output: Intake & Output 04/07/25 04/08/25 04/09/25 04/10/25 23:59 23:59 23:59 23:59 Intake Total 3940 1000 Balance 3940 1000 Meds/Results Medications: Active Medications Generic Name Dose Route Start Last Admin Trade Name Freq PRN Reason Stop Dose Admin Acetaminophen 1,000 mg 04/09/25 13:31 Acetaminophen 500 Mg Tablet PO Q6H PRN Mild Pain (1-3) or Fever Al Hydrox/Mg Hydrox/Simethicone 30 ml 04/09/25 15:13 04/10/25 06:48 Mag Hydrox/Al Hydrox/Simeth 30 Ml Udc PO 30 ml Q3H PRN Administration Indigestion Dextrose 12.5 gm 04/09/25 21:43 Dextrose 50% 25 Gm/50 Ml Syringe IV PUSH PRN PRN Hypoglycemia Protocol Glucagon 1 mg 04/09/25 21:43 Glucagon For Inj 1 Mg Vial IM PRN PRN Hypoglycemia Protocol Glucose 15 gm 04/09/25 21:43 Glucose Oral Gel 15 Gm Of Glucse In 37.5 Gm Tube PO PRN PRN Hypoglycemia Protocol Sodium Chloride 1,000 mls @ 125 mls/hr 04/09/25 12:55 04/10/25 06:08 Normal Saline Iv IV CONT 125 mls/hr .Q8H BRITTNY Administration Dextrose 1,000 mls @ 100 mls/hr 04/09/25 21:43 Dextrose 5% 1,000 Ml IVPB PRN PRN Hypoglycemia Protocol Insulin Aspart 3 - 6 units 04/10/25 08:00 Insulin Aspart (*Bkc) 100 Units/Ml SUB-Q TIDWM BRITTNY Protocol Insulin Aspart 1 - 3 units 04/10/25 21:00 Insulin Aspart (*Bkc) 100 Units/Ml SUB-Q HS BRITTNY Protocol Ondansetron HCl 4 mg 04/09/25 12:55 04/10/25 03:19 Ondansetron Inj 4 Mg/2 Ml Vial IV PUSH 4 mg Q4H PRN Administration Nausea Oxycodone HCl 2.5 mg 04/09/25 13:31 04/09/25 17:59 Oxycodone Hcl (*Crx) 2.5 Mg Tab Ir PO 2.5 mg Q4H PRN Administration Pain Rated 4-6 Pantoprazole Sodium 40 mg 04/09/25 17:00 04/09/25 18:00 Pantoprazole Sodium Iv 40 Mg Vial IV PUSH 40 mg BID BRITTNY Administration Radiology Results: ITS Impressions Abdomen/Pelvis CT 04/09/25 09:21 IMPRESSION: 1. Wall thickening of proximal duodenum with adjacent mild inflammatory stranding suspicious for either duodenitis or with differential including acute interstitial pancreatitis and would correlate with lipase levels. 2. Small sliding-type hiatal hernia versus distal esophageal wall thickening is as can be seen with reflux esophagitis or sequela of vomiting. 3. Diffuse hepatic steatosis. Labs Labs: Laboratory Results - last 24 hr 04/09/25 04/09/25 04/09/25 08:13 10:22 10:44 WBC 10.7 H RBC 5.76 Hgb 16.2 Hct 46.9 MCV 81.4 MCH 28.1 MCHC 34.5 RDW 12.5 Plt Count 370 MPV 9.2 Immature Gran % (Auto) 0.6 H Neut % (Auto) 76.8 H Lymph % (Auto) 17.2 L [place] % (Auto) 5.2 Eos % (Auto) 0.0 Baso % (Auto) 0.2 Lymph # (Auto) 1.84 [place] # (Auto) 0.6 Eos # (Auto) 0.0 Baso # (Auto) 0.0 Abs Immat Gran (auto) 0.06 H Absolute Neuts (auto) 8.2 H Absolute Nucleated RBC 0.000 Nucleated RBC % 0.0 Sodium 134 L Potassium 3.8 Chloride 96 L Carbon Dioxide 17 L Anion Gap 21 H BUN 15 Creatinine 0.78 Estim Creat Clear Calc 104 Estimated GFR > 60 Glucose 345 H Hemoglobin A1c 10.8 H Lactic Acid 3.4 H 1.5 Calcium 9.7 Magnesium Total Bilirubin 0.9 AST 71 H ALT 125 H Alkaline Phosphatase 121 Total Protein 8.6 H Albumin 4.8 Lipase 97 Beta-Hydroxybutyrate/Acetoacetate Urine Color Yellow Urine Appearance Clear Urine pH 5.5 Ur Specific [place] > 1.045 H Urine Protein Trace Urine Glucose (UA) 3+ H Urine Ketones 4+ H Ur Blood (Man) Negative Urine Nitrate Negative Urine Bilirubin Negative Urine Urobilinogen 0.2 Leukocyte Esterase Rfl Negative Urine RBC 0-2 Urine WBC 0-5 Ur Squamous Epith Cells None seen Urine Bacteria None seen Urine Casts 0-2 Blood Type A Positive Antibody Screen Negative 04/09/25 04/10/25 16:44 04:59 WBC 11.0 H RBC 4.87 Hgb 13.6 L Hct 41.0 L MCV 84.2 MCH 27.9 MCHC 33.2 RDW 12.8 Plt Count 259 MPV 9.2 Immature Gran % (Auto) 0.5 Neut % (Auto) 73.0 Lymph % (Auto) 18.9 [place] % (Auto) 7.1 Eos % (Auto) 0.2 Baso % (Auto) 0.3 Lymph # (Auto) 2.08 [place] # (Auto) 0.8 H Eos # (Auto) 0.0 Baso # (Auto) 0.0 Abs Immat Gran (auto) 0.05 H Absolute Neuts (auto) 8.1 H Absolute Nucleated RBC 0.000 Nucleated RBC % 0.0 Sodium 138 135 L Potassium 3.8 3.6 Chloride 103 104 Carbon Dioxide 24 21 L Anion Gap 11 10 BUN 12 13 Creatinine 0.71 0.64 L Estim Creat Clear Calc 113 125 Estimated GFR > 60 > 60 Glucose 229 H 231 H Hemoglobin A1c Lactic Acid Calcium 8.7 8.1 L Magnesium 2.0 Total Bilirubin AST ALT Alkaline Phosphatase Total Protein Albumin Lipase Beta-Hydroxybutyrate/Acetoacetate 0.73 H Urine Color Urine Appearance Urine pH Ur Specific [place] Urine Protein Urine Glucose (UA) Urine Ketones Ur Blood (Man) Urine Nitrate Urine Bilirubin Urine Urobilinogen Leukocyte Esterase Rfl Urine RBC Urine WBC Ur Squamous Epith Cells Urine Bacteria Urine Casts Blood Type Antibody Screen
--- NOTE | 2025-04-10 07:18 | P.PNIM_ITS ---
Progress Note: A&P Assessment and Plan (1) Duodenitis: Code(s): K29.80 - Duodenitis without bleeding Status: Acute Assessment and Plan: * CT abdomen/pelvis: * Wall thickening of proximal duodenum with adjacent mild inflammatory stranding suspicious for either duodenitis or with differential including acute interstitial pancreatitis and would correlate with lipase levels. * Small sliding-type hiatal hernia versus distal esophageal wall thickening is as can be seen with reflux esophagitis or sequela of vomiting. * Diffuse hepatic steatosis. * Recent NSAID use and noncompliance with PPI -> raising concerns for possible ulcer development * GI consulted * Mylanta every 2-3 hours as needed for pain -> patient reporting improvement * clear liquid diet, NPO at midnight for EGD tomorrow for further guided * continue IV pantoprazole * Start PPI b.i.d. * IV fluids, antiemetics p.r.n., analgesics p.r.n. * Monitor renal function electrolytes * NPO (2) Vomiting: Qualifiers: Nausea presence: with nausea Vomiting type: unspecified Qualified Code(s): R11.2 - Nausea with vomiting, unspecified Code(s): R11.10 - Vomiting, unspecified Status: Acute Assessment and Plan: * Likely secondary to duodenitis noted on CT/GERD, however may have mild DKA given gap, ketones in urine, and hypoglycemia. Will check beta hydroxy, repeat BMP, and A1c -> A1c significantly elevated, see below anion gap closed and beta hydroxy mildly elevated. * Antiemetics p.r.n. (3) Hyperglycemia: Code(s): R73.9 - Hyperglycemia, unspecified Status: Acute Assessment and Plan: NEW DM * Initial glucose 345, gap 21, UA showed 4+ ketones * Given 3 L bolus in the ED, recheck BMP * Check beta hydroxy, repeat BMP, and A1c -> beta hydroxy 0.73, A1c 10.8%, and anion gap closed * Patient denies any history of diabetes. Will consult dietitian and visual educator for further education. * Hypoglycemia protocol * POC blood glucose ACHS and HS * Correct regimen ordered - moderate dose TIDWM and HS based off BMI Plan Diet: NPO GI Prophylaxis: pantoprazole b.i.d. DVT Prophylaxis: SCDs IV fluids: 3L bolus -> 125 mL/hr Lines/Tubes: peripheral IV Code Status: full code Subjective Date/time seen: 04/10/25 07:18 Interval history: 44 y/o M with PMH of asthma presents here with nausea and vomiting. The patient presents here from home on 04/09 for further evaluation of nausea and vomiting. 04/10/2025 EGD later today, will continue GI cocktail. Overnight provider was alerted for continued epigastric pain, no systemic analgesics until he can be scoped. Continue oral prn pain control at this time. Review of Systems Review of Systems: All systems reviewed & are unremarkable except as noted in HPI and below Exam Const: General: comfortable and no acute distress Other: , male, nontoxic appearance HENMT: Face/Nose/Sinus: Normal nares present Mouth: Yes moist mucous membranes Eyes: General: appearance normal, both eyes and all related structures Sclera: sclerae normal Pupils: Equal, round and reactive pupils present EOM: EOMs intact bilaterally Resp: Effort & Inspection: normal respiratory effort Auscultation: clear to auscultation bilaterally Cardio: Rate: regular rate Rhythm: regular rhythm Other: S1-S2 present without murmur, rub, ectopy GI: Other: abdomen soft, mildly rounded, tender in the epigastric region. Normoactive bowel sounds in all quadrants. Skin: General skin exam: normal color and no rashes or lesions noted Wounds: no wounds Neuro: Cranial nerves: Yes Equal, round and reactive pupils present Speech: normal speech Motor exam (neuro): 5/5 motor strength present throughout Sensory Exam: normal sensation Other: A&O x4 Extrem: General: normal to inspection Psych: Mental Status: mental status grossly normal Affect: normal affect Other: good insight and judgment, pleasant Objective Data Vital Signs Vital Signs: Vital Signs - 24 hr 04/09/25 08:00 04/09/25 08:07 04/09/25 08:59 Temperature 97.7 F Pulse Rate 85 95 86 Respiratory Rate 20 29 H 14 Blood Pressure 174/106 H 174/106 H 156/105 H Pulse Oximetry 94 96 97 Oxygen Delivery Room Air 04/09/25 09:02 04/09/25 09:51 04/09/25 11:10 Temperature Pulse Rate 92 92 85 Respiratory Rate 19 12 13 Blood Pressure 133/97 H 131/90 129/75 Pulse Oximetry 100 97 96 Oxygen Delivery 04/09/25 13:15 04/09/25 14:15 04/09/25 20:47 Temperature 97.8 F 98.1 F Pulse Rate 89 81 73 Respiratory Rate 15 18 20 Blood Pressure 137/97 H 150/95 H 135/83 Pulse Oximetry 98 100 100 Oxygen Delivery 04/09/25 21:34 04/10/25 02:54 04/10/25 04:47 Temperature 98.3 F 98.0 F Pulse Rate 88 76 Respiratory Rate 20 18 Blood Pressure 137/87 139/92 H Pulse Oximetry 100 99 Oxygen Delivery Room Air Intake/Output Intake/Output: Intake & Output 04/07/25 04/08/25 04/09/25 04/10/25 23:59 23:59 23:59 23:59 Intake Total 3940 1000 Balance 3940 1000 Meds/Results Medications: Active Medications Generic Name Dose Route Start Last Admin Trade Name Freq PRN Reason Stop Dose Admin Acetaminophen 1,000 mg 04/09/25 13:31 Acetaminophen 500 Mg Tablet PO Q6H PRN Mild Pain (1-3) or Fever Al Hydrox/Mg Hydrox/Simethicone 30 ml 04/09/25 15:13 04/10/25 06:48 Mag Hydrox/Al Hydrox/Simeth 30 Ml Udc PO 30 ml Q3H PRN Administration Indigestion Dextrose 12.5 gm 04/09/25 21:43 Dextrose 50% 25 Gm/50 Ml Syringe IV PUSH PRN PRN Hypoglycemia Protocol Glucagon 1 mg 04/09/25 21:43 Glucagon For Inj 1 Mg Vial IM PRN PRN Hypoglycemia Protocol Glucose 15 gm 04/09/25 21:43 Glucose Oral Gel 15 Gm Of Glucse In 37.5 Gm Tube PO PRN PRN Hypoglycemia Protocol Sodium Chloride 1,000 mls @ 125 mls/hr 04/09/25 12:55 04/10/25 06:08 Normal Saline Iv IV CONT 125 mls/hr .Q8H BRITTNY Administration Dextrose 1,000 mls @ 100 mls/hr 04/09/25 21:43 Dextrose 5% 1,000 Ml IVPB PRN PRN Hypoglycemia Protocol Insulin Aspart 3 - 6 units 04/10/25 08:00 Insulin Aspart (*Bkc) 100 Units/Ml SUB-Q TIDWM BRITTNY Protocol Insulin Aspart 1 - 3 units 04/10/25 21:00 Insulin Aspart (*Bkc) 100 Units/Ml SUB-Q HS BRITTNY Protocol Ondansetron HCl 4 mg 04/09/25 12:55 04/10/25 03:19 Ondansetron Inj 4 Mg/2 Ml Vial IV PUSH 4 mg Q4H PRN Administration Nausea Oxycodone HCl 2.5 mg 04/09/25 13:31 04/09/25 17:59 Oxycodone Hcl (*Crx) 2.5 Mg Tab Ir PO 2.5 mg Q4H PRN Administration Pain Rated 4-6 Pantoprazole Sodium 40 mg 04/09/25 17:00 04/09/25 18:00 Pantoprazole Sodium Iv 40 Mg Vial IV PUSH 40 mg BID BRITTNY Administration Radiology Results: ITS Impressions Abdomen/Pelvis CT 04/09/25 09:21 IMPRESSION: 1. Wall thickening of proximal duodenum with adjacent mild inflammatory stranding suspicious for either duodenitis or with differential including acute interstitial pancreatitis and would correlate with lipase levels. 2. Small sliding-type hiatal hernia versus distal esophageal wall thickening is as can be seen with reflux esophagitis or sequela of vomiting. 3. Diffuse hepatic steatosis. Labs Labs: Laboratory Results - last 24 hr 04/09/25 04/09/25 04/09/25 08:13 10:22 10:44 WBC 10.7 H RBC 5.76 Hgb 16.2 Hct 46.9 MCV 81.4 MCH 28.1 MCHC 34.5 RDW 12.5 Plt Count 370 MPV 9.2 Immature Gran % (Auto) 0.6 H Neut % (Auto) 76.8 H Lymph % (Auto) 17.2 L [place] % (Auto) 5.2 Eos % (Auto) 0.0 Baso % (Auto) 0.2 Lymph # (Auto) 1.84 [place] # (Auto) 0.6 Eos # (Auto) 0.0 Baso # (Auto) 0.0 Abs Immat Gran (auto) 0.06 H Absolute Neuts (auto) 8.2 H Absolute Nucleated RBC 0.000 Nucleated RBC % 0.0 Sodium 134 L Potassium 3.8 Chloride 96 L Carbon Dioxide 17 L Anion Gap 21 H BUN 15 Creatinine 0.78 Estim Creat Clear Calc 104 Estimated GFR > 60 Glucose 345 H Hemoglobin A1c 10.8 H Lactic Acid 3.4 H 1.5 Calcium 9.7 Magnesium Total Bilirubin 0.9 AST 71 H ALT 125 H Alkaline Phosphatase 121 Total Protein 8.6 H Albumin 4.8 Lipase 97 Beta-Hydroxybutyrate/Acetoacetate Urine Color Yellow Urine Appearance Clear Urine pH 5.5 Ur Specific [place] > 1.045 H Urine Protein Trace Urine Glucose (UA) 3+ H Urine Ketones 4+ H Ur Blood (Man) Negative Urine Nitrate Negative Urine Bilirubin Negative Urine Urobilinogen 0.2 Leukocyte Esterase Rfl Negative Urine RBC 0-2 Urine WBC 0-5 Ur Squamous Epith Cells None seen Urine Bacteria None seen Urine Casts 0-2 Blood Type A Positive Antibody Screen Negative 04/09/25 04/10/25 16:44 04:59 WBC 11.0 H RBC 4.87 Hgb 13.6 L Hct 41.0 L MCV 84.2 MCH 27.9 MCHC 33.2 RDW 12.8 Plt Count 259 MPV 9.2 Immature Gran % (Auto) 0.5 Neut % (Auto) 73.0 Lymph % (Auto) 18.9 [place] % (Auto) 7.1 Eos % (Auto) 0.2 Baso % (Auto) 0.3 Lymph # (Auto) 2.08 [place] # (Auto) 0.8 H Eos # (Auto) 0.0 Baso # (Auto) 0.0 Abs Immat Gran (auto) 0.05 H Absolute Neuts (auto) 8.1 H Absolute Nucleated RBC 0.000 Nucleated RBC % 0.0 Sodium 138 135 L Potassium 3.8 3.6 Chloride 103 104 Carbon Dioxide 24 21 L Anion Gap 11 10 BUN 12 13 Creatinine 0.71 0.64 L Estim Creat Clear Calc 113 125 Estimated GFR > 60 > 60 Glucose 229 H 231 H Hemoglobin A1c Lactic Acid Calcium 8.7 8.1 L Magnesium 2.0 Total Bilirubin AST ALT Alkaline Phosphatase Total Protein Albumin Lipase Beta-Hydroxybutyrate/Acetoacetate 0.73 H Urine Color Urine Appearance Urine pH Ur Specific [place] Urine Protein Urine Glucose (UA) Urine Ketones Ur Blood (Man) Urine Nitrate Urine Bilirubin Urine Urobilinogen Leukocyte Esterase Rfl Urine RBC Urine WBC Ur Squamous Epith Cells Urine Bacteria Urine Casts Blood Type Antibody Screen Quality VTE Prophylaxis VTE prophylaxis: mechanical ordered
[2025-04-10] MEDS: PANTOPRAZOLE SODIUM IV 40 MG VIAL IV PUSH ×2 (09:46→17:42)
[2025-04-10] MEDS: ACETAMINOPHEN 500 MG TABLET 1000 MG PO (09:48)
--- NOTE | 2025-04-10 10:41 | PC.NURSE ---
pt to GI lab via wheelchair for scheduled procedure
--- NOTE | 2025-04-10 11:03 | WPDANESEPPF ---
Anes - Initial Pre Proc Eval Procedure: Operation Date: 04/10/25 14:30 Proposed Procedures p Esophagogastroduodenoscopy - Solomon Merino MD Date/Time: 04/10/25 11:03 Surgeon: Ijeoma Blanton MD Pre Op Diagnosis: duodenitis,vomiting,epigastric pain Patient Data Age: 44 Gender: M Height: 1.75 m Weight: 88.8 kg Last Vital Signs Temp 36.7 C 04/10/25 11:00 Pulse 79 04/10/25 11:00 Resp 20 04/10/25 11:00 BP 158/100 H 04/10/25 11:00 Pulse Ox 100 04/10/25 11:00 O2 Del Method Room Air 04/10/25 11:00 Allergies Allergy/AdvReac Type Severity Reaction Status Date / Time No Known Allergies Allergy Verified 04/09/25 08:08 Home Medications ?Medication ?Instructions ?Recorded ?Confirmed ?Type pseudoephedrine HCl 30 mg tablet 30 mg PO Q4-6H PRN nasal 02/28/24 04/09/25 Rx congestion #48 tabs esomeprazole magnesium 20 mg 40 mg PO DAILY 03/11/24 04/09/25 History capsule,delayed release (Nexium) Laboratory Tests 04/09/25 04/09/25 04/10/25 08:13 16:44 04:59 WBC 11.0 H K/mm3 (4.5-10.0) RBC 4.87 M/mm3 (4.6-6.20) Hgb 13.6 L g/dL (14.0-18.0) Hct 41.0 L % (42.0-52.0) MCV 84.2 fl (80-100) MCH 27.9 pg (26-34) MCHC 33.2 g/dl (32-36) RDW 12.8 % (11.5-14.5) Plt Count 259 k/mm3 (150-375) MPV 9.2 fl (7.4-10.4) Immature Gran % (Auto) 0.5 % (0-0.5) Neut % (Auto) 73.0 % (45.5-73.1) Lymph % (Auto) 18.9 % (18.3-44.2) [place] % (Auto) 7.1 % (2.6-8.5) Eos % (Auto) 0.2 % (0-4.4) Baso % (Auto) 0.3 % (0.2-1.2) Lymph # (Auto) 2.08 K/mm3 (0.9-3.2) [place] # (Auto) 0.8 H K/mm3 (0.1-0.6) Eos # (Auto) 0.0 K/mm3 (0-0.3) Baso # (Auto) 0.0 K/mm3 (0.0-0.1) Abs Immat Gran (auto) 0.05 H K/mm3 (0.00-0.031) Absolute Neuts (auto) 8.1 H K/mm3 (1.3-6.7) Absolute Nucleated RBC 0.000 K/mm3 (0.0-0.012) Nucleated RBC % 0.0 % (0.0-0.2) Sodium 138 mmol/L 135 L mmol/L (137-145) (137-145) Potassium 3.8 mmol/L 3.6 mmol/L (3.4-5.0) (3.4-5.0) Chloride 103 mmol/L 104 mmol/L (98-107) (98-107) Carbon Dioxide 24 mmol/L 21 L mmol/L (22-30) (22-30) Anion Gap 11 mmol/L 10 mmol/L (4-12) (4-12) BUN 12 mg/dL 13 mg/dL (9-20) (9-20) Creatinine 0.71 mg/dL 0.64 L mg/dL (0.7-1.3) (0.7-1.3) Estim Creat Clear Calc 113 ml/min 125 ml/min Estimated GFR > 60 > 60 (59 - ) (59 - ) Glucose 229 H mg/dL 231 H mg/dL (65-110) (65-110) POC Capillary Glucose Hemoglobin A1c 10.8 H % (<5.7) Calcium 8.7 mg/dL 8.1 L mg/dL (8.4-10.2) (8.4-10.2) Magnesium 2.0 mg/dL (1.6-2.3) Beta-Hydroxybutyrate/Acetoacetate 0.73 H mmol/L (0.02-0.27) 04/10/25 07:34 WBC RBC Hgb Hct MCV MCH MCHC RDW Plt Count MPV Immature Gran % (Auto) Neut % (Auto) Lymph % (Auto) [place] % (Auto) Eos % (Auto) Baso % (Auto) Lymph # (Auto) [place] # (Auto) Eos # (Auto) Baso # (Auto) Abs Immat Gran (auto) Absolute Neuts (auto) Absolute Nucleated RBC Nucleated RBC % Sodium Potassium Chloride Carbon Dioxide Anion Gap BUN Creatinine Estim Creat Clear Calc Estimated GFR Glucose POC Capillary Glucose 222 H mg/dl (65-105) Hemoglobin A1c Calcium Magnesium Beta-Hydroxybutyrate/Acetoacetate Patient hx anesthesia problems: none Family hx anesthesia problems: none Results Review: All pre-operative results and documents have been reviewed as part of the pre-operative evaluation. ON LICENSE OF [facility] Past Medical History Medical History (Updated 04/10/25 @ 11:03 by Kenny Russell MD) Overweight Asthma Surgical History Surgical History No history of previous surgery Social History Social History Smoking status: Never smoker Alcohol intake: current Drinks per week: 1 Substance use: current Substance use type: marijuana Do You Feel Safe in your Home?: Yes Lack of Transportation: YES Lack of Food: Never True Current Housing: I Have Housing Concerned About Future Housing: No Difficulty Paying Gas/Electric Bills: No Difficulty Paying for Meds: No Currently Unemployed: No Education: High School Diploma/GED Difficulty w/ Childcare or Family Care: No Spiritual care concerns: No Anes - Eval Final PreProcedure Day of Procedure 04/10/25 11:03 Patient weight: overweight Heart: regular rate and rhythm Lungs: clear to auscultation Airway: Mallampati scale class III Neurological: alert and oriented ASA classification: III Emergent: no Anesthetic plan: proceed Anesthesia type and monitoring: general GIVS and standard monitoring Results Review: All pre-operative results and documents have been reviewed as part of the pre-operative evaluation. Informed Consent: The patient's anesthetic plan and its attendant risks and benefits were discussed with the patient/family/POA. Questions were solicited and answers provided to the satisfaction of the patient/family/POA.
[2025-04-10] MEDS: LACTATED RINGERS 1,000 ML 150 ML IV CONT (11:04)
[2025-04-10] MEDS: SIMETHICONE ORAL SUSPENSION 20 MG/0.3 ML 30 ML BOTTLE 1.8 ML PO (11:05)
--- NOTE | 2025-04-10 11:08 | WPDANESEPPF ---
Anes - Initial Pre Proc Eval Procedure: Operation Date: 04/10/25 14:30 Proposed Procedures p Esophagogastroduodenoscopy - Solomon Merino MD Date/Time: 04/10/25 11:08 Surgeon: Ijeoma Blanton MD Pre Op Diagnosis: duodenitis,vomiting,epigastric pain Patient Data Age: 44 Gender: M Height: 1.75 m Weight: 88.8 kg Last Vital Signs Temp 36.7 C 04/10/25 11:00 Pulse 79 04/10/25 11:00 Resp 20 04/10/25 11:00 BP 158/100 H 04/10/25 11:00 Pulse Ox 100 04/10/25 11:00 O2 Del Method Room Air 04/10/25 11:00 Allergies Allergy/AdvReac Type Severity Reaction Status Date / Time No Known Allergies Allergy Verified 04/09/25 08:08 Home Medications ?Medication ?Instructions ?Recorded ?Confirmed ?Type pseudoephedrine HCl 30 mg tablet 30 mg PO Q4-6H PRN nasal 02/28/24 04/09/25 Rx congestion #48 tabs esomeprazole magnesium 20 mg 40 mg PO DAILY 03/11/24 04/09/25 History capsule,delayed release (Nexium) Laboratory Tests 04/09/25 04/09/25 04/10/25 08:13 16:44 04:59 WBC 11.0 H K/mm3 (4.5-10.0) RBC 4.87 M/mm3 (4.6-6.20) Hgb 13.6 L g/dL (14.0-18.0) Hct 41.0 L % (42.0-52.0) MCV 84.2 fl (80-100) MCH 27.9 pg (26-34) MCHC 33.2 g/dl (32-36) RDW 12.8 % (11.5-14.5) Plt Count 259 k/mm3 (150-375) MPV 9.2 fl (7.4-10.4) Immature Gran % (Auto) 0.5 % (0-0.5) Neut % (Auto) 73.0 % (45.5-73.1) Lymph % (Auto) 18.9 % (18.3-44.2) [place] % (Auto) 7.1 % (2.6-8.5) Eos % (Auto) 0.2 % (0-4.4) Baso % (Auto) 0.3 % (0.2-1.2) Lymph # (Auto) 2.08 K/mm3 (0.9-3.2) [place] # (Auto) 0.8 H K/mm3 (0.1-0.6) Eos # (Auto) 0.0 K/mm3 (0-0.3) Baso # (Auto) 0.0 K/mm3 (0.0-0.1) Abs Immat Gran (auto) 0.05 H K/mm3 (0.00-0.031) Absolute Neuts (auto) 8.1 H K/mm3 (1.3-6.7) Absolute Nucleated RBC 0.000 K/mm3 (0.0-0.012) Nucleated RBC % 0.0 % (0.0-0.2) Sodium 138 mmol/L 135 L mmol/L (137-145) (137-145) Potassium 3.8 mmol/L 3.6 mmol/L (3.4-5.0) (3.4-5.0) Chloride 103 mmol/L 104 mmol/L (98-107) (98-107) Carbon Dioxide 24 mmol/L 21 L mmol/L (22-30) (22-30) Anion Gap 11 mmol/L 10 mmol/L (4-12) (4-12) BUN 12 mg/dL 13 mg/dL (9-20) (9-20) Creatinine 0.71 mg/dL 0.64 L mg/dL (0.7-1.3) (0.7-1.3) Estim Creat Clear Calc 113 ml/min 125 ml/min Estimated GFR > 60 > 60 (59 - ) (59 - ) Glucose 229 H mg/dL 231 H mg/dL (65-110) (65-110) POC Capillary Glucose Hemoglobin A1c 10.8 H % (<5.7) Calcium 8.7 mg/dL 8.1 L mg/dL (8.4-10.2) (8.4-10.2) Magnesium 2.0 mg/dL (1.6-2.3) Beta-Hydroxybutyrate/Acetoacetate 0.73 H mmol/L (0.02-0.27) 04/10/25 07:34 WBC RBC Hgb Hct MCV MCH MCHC RDW Plt Count MPV Immature Gran % (Auto) Neut % (Auto) Lymph % (Auto) [place] % (Auto) Eos % (Auto) Baso % (Auto) Lymph # (Auto) [place] # (Auto) Eos # (Auto) Baso # (Auto) Abs Immat Gran (auto) Absolute Neuts (auto) Absolute Nucleated RBC Nucleated RBC % Sodium Potassium Chloride Carbon Dioxide Anion Gap BUN Creatinine Estim Creat Clear Calc Estimated GFR Glucose POC Capillary Glucose 222 H mg/dl (65-105) Hemoglobin A1c Calcium Magnesium Beta-Hydroxybutyrate/Acetoacetate Patient hx anesthesia problems: none Family hx anesthesia problems: none Results Review: All pre-operative results and documents have been reviewed as part of the pre-operative evaluation. [facility] Past Medical History Medical History (Updated 04/10/25 @ 11:03 by Kenny Russell MD) Overweight Asthma Surgical History Surgical History No history of previous surgery Social History Social History Smoking status: Never smoker Alcohol intake: current Drinks per week: 1 Substance use: current Substance use type: marijuana Do You Feel Safe in your Home?: Yes Lack of Transportation: YES Lack of Food: Never True Current Housing: I Have Housing Concerned About Future Housing: No Difficulty Paying Gas/Electric Bills: No Difficulty Paying for Meds: No Currently Unemployed: No Education: High School Diploma/GED Difficulty w/ Childcare or Family Care: No Spiritual care concerns: No Anes - Eval Final PreProcedure Day of Procedure 04/10/25 11:08 Patient weight: overweight Heart: regular rate and rhythm Lungs: clear to auscultation Airway: Mallampati scale class III Neurological: lethargic Last oral intake: >/= 8 hours ASA classification: III Emergent: no Anesthetic plan: proceed Anesthesia type and monitoring: general GIVS and standard monitoring Results Review: All pre-operative results and documents have been reviewed as part of the pre-operative evaluation. Informed Consent: The patient's anesthetic plan and its attendant risks and benefits were discussed with the patient/family/POA. Questions were solicited and answers provided to the satisfaction of the patient/family/POA.
--- NOTE | 2025-04-10 11:47 | S_PTH ---
PATIENT: Syd Bryant LOC: [id number] #:[id number] AGE/SX: 44/M ROOM: 257 RE04/09/[address]: aPulino Hdz MD : 1980 BED: 01 DIS: 04/11/2025 SPEC #: [id number] RECD: 04/10/25 12:57 STATUS: SHADE REChapo #: [id number] [place]: 04/10/25 11:[address]: Solomon Merino DEPT: [facility] Surgical RECD BY: Kendra Borjas ENTERED: 04/10/25 12:57 SP TYPE: Surgical OTHR DR: SAMANTHA Chu MD James E Nanney, SIMON Tissues: A - Gastric Biopsy B - Gastric Biopsy Procedures: Hematoxylin and Eosin Stain Gross and Microscopic Level 4
--- NOTE | 2025-04-10 12:07 | P.PNGI_ITS ---
Progress Note: A&P Assessment and Plan (1) Duodenal bulb ulcer: Code(s): K26.9 - Duodenal ulcer, unspecified as acute or chronic, without hemorrhage or perforation Status: Acute Assessment and Plan: EGD findings confirm non-bleeding duodenal ulcers and severe erosive esophagitis, consistent with the patient's pre-existing, chronic GERD. Notably, the patient's current GERD management is only as-needed omeprazole. As there's no immediate bleeding risk, the patient is stable for discharge today. Treatment will include a 6-week course of double-dose PPI (e.g., Pantoprazole) for ulcer healing. Given the severity of esophagitis and chronic GERD, the patient should also initiate daily single-dose PPI therapy for maintenance, in addition to recommended dietary and lifestyle changes. Follow-up is suggested for one month in our clinic. Plan Pantoprazole 40 mg bid for 2 months, then take only once a day, 1/2 before breakfast Arrange office visit in GI in 1 month Subjective Date/time seen: 04/10/25 12:07 Objective Data Vital Signs Vital Signs: Vital Signs - 24 hr 04/09/25 13:15 04/09/25 14:15 04/09/25 20:47 Temperature 97.8 F 98.1 F Pulse Rate 89 81 73 Respiratory Rate 15 18 20 Blood Pressure 137/97 H 150/95 H 135/83 Pulse Oximetry 98 100 100 Oxygen Delivery 04/09/25 21:34 04/10/25 02:54 04/10/25 04:47 Temperature 98.3 F 98.0 F Pulse Rate 88 76 Respiratory Rate 20 18 Blood Pressure 137/87 139/92 H Pulse Oximetry 100 99 Oxygen Delivery Room Air 04/10/25 08:20 04/10/25 11:00 04/10/25 11:46 Temperature 98.1 F Pulse Rate 79 79 Respiratory Rate 20 24 H Blood Pressure 158/100 H 145/82 H Pulse Oximetry 100 99 Oxygen Delivery Room Air Room Air Room Air 04/10/25 11:56 04/10/25 12:06 Temperature Pulse Rate 71 76 Respiratory Rate 16 18 Blood Pressure 152/91 H 138/90 Pulse Oximetry 99 100 Oxygen Delivery Room Air Room Air Intake/Output Intake/Output: Intake & Output 04/07/25 04/08/25 04/09/25 04/10/25 23:59 23:59 23:59 23:59 Intake Total 3940 1050 Balance 3940 1050 Meds/Results Medications: Active Medications Generic Name Dose Route Start Last Admin Trade Name Jonnathanq PRN Reason Stop Dose Admin Acetaminophen 1,000 mg 04/09/25 13:31 04/10/25 09:48 Acetaminophen 500 Mg Tablet PO 1,000 mg Q6H PRN Administration Mild Pain (1-3) or Fever Al Hydrox/Mg Hydrox/Simethicone 30 ml 04/09/25 15:13 04/10/25 06:48 Mag Hydrox/Al Hydrox/Simeth 30 Ml Udc PO 30 ml Q3H PRN Administration Indigestion Belladonna Alkaloids/ 0 ml 04/10/25 11:53 Phenobarbital 10 ml/ Al Hydrox PO 04/10/25 11:54 /Mg Hydrox/Simethicone 30 ml/ ONCE STA Lidocaine HCl 10 ml Dextrose 12.5 gm 04/09/25 21:43 Dextrose 50% 25 Gm/50 Ml Syringe IV PUSH PRN PRN Hypoglycemia Protocol Glucagon 1 mg 04/09/25 21:43 Glucagon For Inj 1 Mg Vial IM PRN PRN Hypoglycemia Protocol Glucose 15 gm 04/09/25 21:43 Glucose Oral Gel 15 Gm Of Glucse In 37.5 Gm Tube PO PRN PRN Hypoglycemia Protocol Sodium Chloride 1,000 mls @ 125 mls/hr 04/09/25 12:55 04/10/25 06:08 Normal Saline Iv IV CONT 125 mls/hr .Q8H BRITTNY Administration Dextrose 1,000 mls @ 100 mls/hr 04/09/25 21:43 Dextrose 5% 1,000 Ml IVPB PRN PRN Hypoglycemia Protocol Lactated Ringer's 1,000 mls @ 150 mls/hr 04/10/25 11:00 04/10/25 12:01 Lr - Lactated Ringers Iv IV CONT Infused .Q6H40M BRITTNY Infusion Insulin Aspart 3 - 6 units 04/10/25 08:00 04/10/25 09:46 Insulin Aspart (*Bkc) 100 Units/Ml SUB-Q Not Given TIDWM [facility] Protocol Insulin Aspart 1 - 3 units 04/10/25 21:00 Insulin Aspart (*Bkc) 100 Units/Ml SUB-Q HS [facility] Protocol Ondansetron HCl 4 mg 04/09/25 12:55 04/10/25 03:19 Ondansetron Inj 4 Mg/2 Ml Vial IV PUSH 4 mg Q4H PRN Administration Nausea Oxycodone HCl 2.5 mg 04/09/25 13:31 04/09/25 17:59 Oxycodone Hcl (*Crx) 2.5 Mg Tab Ir PO 2.5 mg Q4H PRN Administration Pain Rated 4-6 Pantoprazole Sodium 40 mg 04/09/25 17:00 04/10/25 09:46 Pantoprazole Sodium Iv 40 Mg Vial IV PUSH 40 mg BID BRITTNY Administration Radiology Results: ITS Impressions Abdomen/Pelvis CT 04/09/25 09:21 IMPRESSION: 1. Wall thickening of proximal duodenum with adjacent mild inflammatory stranding suspicious for either duodenitis or with differential including acute interstitial pancreatitis and would correlate with lipase levels. 2. Small sliding-type hiatal hernia versus distal esophageal wall thickening is as can be seen with reflux esophagitis or sequela of vomiting. 3. Diffuse hepatic steatosis. Pelvis Ultrasound 04/10/25 11:53 IMPRESSION: 1. Residual inflammatory stranding or phlegmonous change at the site of a reportedly recently ruptured and draining abscess. No residual abscess cavity appreciated. Labs Labs: Laboratory Results - last 24 hr 04/09/25 04/09/25 04/10/25 08:13 16:44 04:59 WBC 11.0 H RBC 4.87 Hgb 13.6 L Hct 41.0 L MCV 84.2 MCH 27.9 MCHC 33.2 RDW 12.8 Plt Count 259 MPV 9.2 Immature Gran % (Auto) 0.5 Neut % (Auto) 73.0 Lymph % (Auto) 18.9 [place] % (Auto) 7.1 Eos % (Auto) 0.2 Baso % (Auto) 0.3 Lymph # (Auto) 2.08 [place] # (Auto) 0.8 H Eos # (Auto) 0.0 Baso # (Auto) 0.0 Abs Immat Gran (auto) 0.05 H Absolute Neuts (auto) 8.1 H Absolute Nucleated RBC 0.000 Nucleated RBC % 0.0 Sodium 138 135 L Potassium 3.8 3.6 Chloride 103 104 Carbon Dioxide 24 21 L Anion Gap 11 10 BUN 12 13 Creatinine 0.71 0.64 L Estim Creat Clear Calc 113 125 Estimated GFR > 60 > 60 Glucose 229 H 231 H POC Capillary Glucose Hemoglobin A1c 10.8 H Calcium 8.7 8.1 L Magnesium 2.0 Beta-Hydroxybutyrate/Acetoacetate 0.73 H 04/10/25 04/10/25 04/10/25 07:34 10:49 12:04 WBC RBC Hgb Hct MCV MCH MCHC RDW Plt Count MPV Immature Gran % (Auto) Neut % (Auto) Lymph % (Auto) [place] % (Auto) Eos % (Auto) Baso % (Auto) Lymph # (Auto) [place] # (Auto) Eos # (Auto) Baso # (Auto) Abs Immat Gran (auto) Absolute Neuts (auto) Absolute Nucleated RBC Nucleated RBC % Sodium Potassium Chloride Carbon Dioxide Anion Gap BUN Creatinine Estim Creat Clear Calc Estimated GFR Glucose POC Capillary Glucose 222 H 200 H 196 H Hemoglobin A1c Calcium Magnesium Beta-Hydroxybutyrate/Acetoacetate
[2025-04-10] MEDS: INSULIN ASPART (*BKC) 100 UNITS/ML SUB-Q ×2 (13:18→17:42)
--- NOTE | 2025-04-10 13:30 | P.DS_ITS ---
DS: Admitting Diagnosis Discharge Date 04/10/2025 Admitting Diagnosis Duodenal bulb ulcer DS: Discharge Diagnosis Discharge Diagnosis (1) Duodenitis: Code(s): K29.80 - Duodenitis without bleeding Status: Acute (2) Vomiting: Qualifiers: Nausea presence: with nausea Vomiting type: unspecified Qualified Code(s): R11.2 - Nausea with vomiting, unspecified Code(s): R11.10 - Vomiting, unspecified Status: Acute (3) Hyperglycemia: Code(s): R73.9 - Hyperglycemia, unspecified Status: Acute (4) Abscess of right groin: Code(s): L02.214 - Cutaneous abscess of groin Status: Acute DS: Summary Hospital Course Reason for hospitalization: Nausea and Vomiting Hospital Course: 44 y/o M with PMH of asthma presents here with nausea and vomiting. The patient presents here from home on 04/09 for further evaluation of nausea and vomiting. He reports he has been throwing up for the past 24 hours - started Monday. Nausea and vomiting are accompanied by abdominal distension. He denies fever, chills, body aches, constipation, diarrhea, fatigue. He reports GI a history significant for GERD. for which he is post take an ulcer medication but has not been compliant with this for the past month. Of note, he recently had a tooth that was causing issues. He he was started on antibiotics and has been taking ibuprofen 800 mg and Tylenol 1G rotating for the pain and had tooth pulled yesterday. He reports he was taking a lot of NSAIDs prior to the procedure. Initial VS at presentation: 97.7? F, HR 75, R 20, 174/106, and 94% on RA. ED workup showed: WBC 10.7, no anemia, sodium 134, creatinine 0.78 and GFR >60 , glucose 345, initial lactic 3.4 -> 1.5, glucose 345, gap 21, and UA showed a high specific gravity with 3+ glucose and 4+ ketones. CT of the abdomen/ pelvis showed wall thickening of the proximal duodenum with adjacent mild inflammatory stranding suspicious for either duodenitis or acute interstitial pancreatitis, small sliding type hiatal hernia versus distal esophageal wall thickening, diffu se hepatic steatosis. Patient was seen by Gastroenterology for acute epigastric pain, recommended continuing GI cocktail with an EGD scope later in the day. EGD showed reflux esophagitis, gastritis and an unspecified duodenal ulcer. Recommended continuing pantoprazole and Mylanta. Gastroenterology reassess the patient after the EGD findings, recommended discharging the patient at this time. There was no immediate risk for bleeding and the patient can follow up with our office in the outpatient setting in 1 month. GI recommends a 6 weeks course of double dose PPI, with subsequent maintenance dosages after the 6 weeks. Regarding new onset diabetes, we will discharge the patient on 1000 mg metformin b.i.d.. I will also prescribe glucometer along with test strips and 10ml Lantus to be taken at night. Patient will also be instructed to follow-up with his PCP regarding new onset diabetes and has been given Status at Discharge Functional status at discharge: independent ambulation Overall status at discharge: patient is back to baseline Time Spent with Patient Time attestation: Total time spent providing and/or coordinating discharge services: 51 Exam Const: Other: , male, nontoxic appearance Cardio: Other: S1-S2 present without murmur, rub, ectopy GI: Other: abdomen soft, mildly rounded, tender in the epigastric region. Normoactive bowel sounds in all quadrants. Neuro: Other: A&O x4 Psych: Other: good insight and judgment, pleasant DS: Data Data Completed and Pending Pending studies at discharge: Pending at discharge 04/10/25 11:47 Surgical [PTH] Routine Labs on day of discharge: Labs from last 24 hours 04/10/25 04/10/25 04/10/25 12:24 12:04 10:49 WBC RBC Hgb Hct MCV MCH MCHC RDW Plt Count MPV Immature Gran % (Auto) Neut % (Auto) Lymph % (Auto) [place] % (Auto) Eos % (Auto) Baso % (Auto) Lymph # (Auto) [place] # (Auto) Eos # (Auto) Baso # (Auto) Abs Immat Gran (auto) Absolute Neuts (auto) Absolute Nucleated RBC Nucleated RBC % Sodium Potassium Chloride Carbon Dioxide Anion Gap BUN Creatinine Estim Creat Clear Calc Estimated GFR Glucose POC Capillary Glucose 201 H 196 H 200 H Hemoglobin A1c Calcium Magnesium Beta-Hydroxybutyrate/Acetoacetate 04/10/25 04/10/25 04/09/25 07:34 04:59 16:44 WBC 11.0 H RBC 4.87 Hgb 13.6 L Hct 41.0 L MCV 84.2 MCH 27.9 MCHC 33.2 RDW 12.8 Plt Count 259 MPV 9.2 Immature Gran % (Auto) 0.5 Neut % (Auto) 73.0 Lymph % (Auto) 18.9 [place] % (Auto) 7.1 Eos % (Auto) 0.2 Baso % (Auto) 0.3 Lymph # (Auto) 2.08 [place] # (Auto) 0.8 H Eos # (Auto) 0.0 Baso # (Auto) 0.0 Abs Immat Gran (auto) 0.05 H Absolute Neuts (auto) 8.1 H Absolute Nucleated RBC 0.000 Nucleated RBC % 0.0 Sodium 135 L 138 Potassium 3.6 3.8 Chloride 104 103 Carbon Dioxide 21 L 24 Anion Gap 10 11 BUN 13 12 Creatinine 0.64 L 0.71 Estim Creat Clear Calc 125 113 Estimated GFR > 60 > 60 Glucose 231 H 229 H POC Capillary Glucose 222 H Hemoglobin A1c Calcium 8.1 L 8.7 Magnesium 2.0 Beta-Hydroxybutyrate/Acetoacetate 0.73 H 04/09/25 08:13 WBC RBC Hgb Hct MCV MCH MCHC RDW Plt Count MPV Immature Gran % (Auto) Neut % (Auto) Lymph % (Auto) [place] % (Auto) Eos % (Auto) Baso % (Auto) Lymph # (Auto) [place] # (Auto) Eos # (Auto) Baso # (Auto) Abs Immat Gran (auto) Absolute Neuts (auto) Absolute Nucleated RBC Nucleated RBC % Sodium Potassium Chloride Carbon Dioxide Anion Gap BUN Creatinine Estim Creat Clear Calc Estimated GFR Glucose POC Capillary Glucose Hemoglobin A1c 10.8 H Calcium Magnesium Beta-Hydroxybutyrate/Acetoacetate Discharge Plan Discharge Attending physician on discharge: Paulino Hdz Consulting providers: Santiago Root Discharging Clinician: Santiago Root Anticipated Discharge Date/Time: 04/10/25 13:24 Patient Disposition: Home Activity: as tolerated Diet: as tolerated Discharge Instructions: Discharge disposition: Stable Take medications as prescribed. You will be prescribed Bactrim to be taken for 7 days total for your abscess. You will also be given Pantoprazole 40mg to be taken twice daily for 2 months, then begin taking once daily after than. You will also be prescribed Metformin 1000mg to be taken twice daily for your diabetes. Monitor blood pressures Take caution while standing, rising, or moving Change positions slowly taking a break between each position change If you standing feel dizzy sit back down and take a break Encouraged to continue with yearly vaccinations Return to the emergency department if he developed sudden shortness of breath, chest pain, nausea, vomiting, upset stomach or intractable diarrhea Return to the emergency department if you develop fever greater than 101.5 Follow-up with the primary care physician within 1-2 weeks regarding your draining abscess. You will also need to follow up with your primary care physician regarding your new onset diagnosis of Diabetes. You will need a follow up A1C checked in 3 months. Follow up with GI in 1 month. Thank you for choosing [facility] for your healthcare needs Patient Instructions: Antibiotic Form, Diet for Stomach Ulcers and Gastritis (ED), Type 2 Diabetes in Adults: New Diagnosis (DC), Basic Carbohydrate Counting (DC) Patient Language: Albanian Stand Alone Forms: General Discharge Information Follow-up/Referrals: Rachel,SIMON Dodson [Primary Care Provider] - Solomon Merino MD [Physician] - Discharge Medications: New (DME) Accu-Chek Guide test strips Strip See Rx Instructions .Route Qty: 50 0RF Rx Instructions: As directed (DME) blood-glucose meter [Accu-Chek Guide Glucose Meter] Misc See Rx Instructions .Route Qty: 1 0RF Rx Instructions: As directed pantoprazole 40 mg tablet,delayed release (DR/EC) 40 mg PO BID 56 Days Qty: 112 0RF sulfamethoxazole-trimethoprim [Bactrim] 400-80 mg tablet 1 tablet PO HS 7 Days Qty: 7 0RF metformin 1,000 mg tablet 1,000 mg PO BID 30 Days Qty: 60 0RF insulin glargine [Lantus Solostar U-100 Insulin] 100 unit/mL (3 mL) insulin pen 10 unit subcut QPM Qty: 15 0RF Continued pseudoephedrine HCl 30 mg tablet 30 mg PO Q4-6H PRN (Reason: nasal congestion) Qty: 48 0RF Rx Instructions: DNExceed 4 doses/24h Discontinued esomeprazole magnesium [Nexium] 20 mg capsule,delayed release(DR/EC) 40 mg PO DAILY Date of admission: 04/09/25 12:56 Primary Care Provider: RachelKenny Admitting Provider: Ijeoma Blanton Attending physician on admission: Ijeoma Blanton Condition: Stable Quality VTE Prophylaxis VTE prophylaxis: mechanical ordered
--- NOTE | 2025-04-10 14:50 | PCCDE ---
Spoke with nurse Headley regarding Diabetes Education consult. Patient is being discharged home today with a new prescription for metformin. He has been provided a Diabetes Education book and Mary the dietitian spoke with the patient and his regarding diet modifications that need to be started. Instructed Fang to inform patient of Outpatient Diabetes Education referrals and for patient to ask Primary Care Physician for a consult at his follow up visit. Also, asked Fang to request prescription for a meter and strips and an order from the hospitalist for how often patient should be performing blood glucose checks after discharge. Fang was also asked to provide teaching to the patient on how to perform glucose checks with a home meter.
--- NOTE | 2025-04-10 15:18 | P.PNIM_ITS ---
Progress Note: A&P Assessment and Plan (1) Duodenitis: Code(s): K29.80 - Duodenitis without bleeding Status: Acute Assessment and Plan: * CT abdomen/pelvis: * Wall thickening of proximal duodenum with adjacent mild inflammatory stranding suspicious for either duodenitis or with differential including acute interstitial pancreatitis and would correlate with lipase levels. * Small sliding-type hiatal hernia versus distal esophageal wall thickening is as can be seen with reflux esophagitis or sequela of vomiting. * Diffuse hepatic steatosis. * Recent NSAID use and noncompliance with PPI -> raising concerns for possible ulcer development * GI consulted * Mylanta every 2-3 hours as needed for pain -> patient reporting improvement * clear liquid diet, NPO at midnight for EGD tomorrow for further guided * continue IV pantoprazole * Start PPI b.i.d. * IV fluids, antiemetics p.r.n., analgesics p.r.n. * Monitor renal function electrolytes * EGD indicative of ulcers with esophagitis * Will progress diet over the next 24 hours (2) Vomiting: Qualifiers: Nausea presence: with nausea Vomiting type: unspecified Qualified Code(s): R11.2 - Nausea with vomiting, unspecified Code(s): R11.10 - Vomiting, unspecified Status: Acute Assessment and Plan: * Likely secondary to duodenitis noted on CT/GERD, however may have mild DKA given gap, ketones in urine, and hypoglycemia. Will check beta hydroxy, repeat BMP, and A1c -> A1c significantly elevated, see below anion gap closed and beta hydroxy mildly elevated. * Antiemetics p.r.n. * Will advance diet (3) Hyperglycemia: Code(s): R73.9 - Hyperglycemia, unspecified Status: Acute Assessment and Plan: NEW DM * Initial glucose 345, gap 21, UA showed 4+ ketones * Given 3 L bolus in the ED, recheck BMP * Check beta hydroxy, repeat BMP, and A1c -> beta hydroxy 0.73, A1c 10.8%, and anion gap closed * Patient denies any history of diabetes. Will consult dietitian and tobacco educator for further education. * Hypoglycemia protocol * POC blood glucose ACHS and HS * Correct regimen ordered - moderate dose TIDWM and HS based off BMI * Will initiate lantus * 1000mg BID Metformin on discharge, send home with glucose meter+strips (4) Abscess of right groin: Code(s): L02.214 - Cutaneous abscess of groin Status: Acute Assessment and Plan: * CT Abd/pelvis: 1. Wall thickening of proximal duodenum with adjacent mild inflammatory stranding suspicious for either duodenitis or with differential including acute interstitial pancreatitis and would correlate with lipase levels. 2. Small sliding-type hiatal hernia versus distal esophageal wall thickening is as can be seen with reflux esophagitis or sequela of vomiting. 3. Diffuse hepatic steatosis. * Pevlis US: Residual inflammatory stranding or phlegmonous change at the site of a reportedly recently ruptured and draining abscess. No residual abscess cavity appreciated. * Wound is already draining and improved, per patient/spouse * Will discharge on oral abx and instructed to follow up with PCP * Continue wound care Plan Diet: NPO GI Prophylaxis: pantoprazole b.i.d. DVT Prophylaxis: SCDs IV fluids: 3L bolus -> 125 mL/hr Lines/Tubes: peripheral IV Code Status: full code Subjective Date/time seen: 04/10/25 15:18 Interval history: 44 y/o M with PMH of asthma presents here with nausea and vomiting. The patient presents here from home on 04/09 for further evaluation of nausea and vomiting. 04/10/2025 EGD later today, will continue GI cocktail. Overnight provider was alerted for continued epigastric pain, no systemic analgesics until he can be scoped. Continue oral prn pain control at this time. Will discharge patient on 1000 mg metformin b.i.d. along with glucose monitor/strips. Will monitor until tomorrow in order to initiate Lantus and progress diet. Exam Const: Other: , male, nontoxic appearance Cardio: Other: S1-S2 present without murmur, rub, ectopy GI: Other: abdomen soft, mildly rounded, tender in the epigastric region. Normoactive bowel sounds in all quadrants. Neuro: Other: A&O x4 Psych: Other: good insight and judgment, pleasant Objective Data Vital Signs Vital Signs: Vital Signs - 24 hr 04/09/25 20:47 04/09/25 21:34 04/10/25 02:54 Temperature 98.1 F 98.3 F Pulse Rate 73 88 Respiratory Rate 20 20 Blood Pressure 135/83 137/87 Pulse Oximetry 100 100 Oxygen Delivery Room Air 04/10/25 04:47 04/10/25 08:20 04/10/25 11:00 Temperature 98.0 F 98.1 F Pulse Rate 76 79 Respiratory Rate 18 20 Blood Pressure 139/92 H 158/100 H Pulse Oximetry 99 100 Oxygen Delivery Room Air Room Air 04/10/25 11:46 04/10/25 11:56 04/10/25 12:06 Temperature Pulse Rate 79 71 76 Respiratory Rate 24 H 16 18 Blood Pressure 145/82 H 152/91 H 138/90 Pulse Oximetry 99 99 100 Oxygen Delivery Room Air Room Air Room Air 04/10/25 12:30 Temperature 97.8 F Pulse Rate 76 Respiratory Rate 14 Blood Pressure 155/92 H Pulse Oximetry 100 Oxygen Delivery Intake/Output Intake/Output: Intake & Output 04/07/25 04/08/25 04/09/25 04/10/25 23:59 23:59 23:59 23:59 Intake Total 3940 1648 Balance 3940 1648 Meds/Results Medications: Active Medications Generic Name Dose Route Start Last Admin Trade Name Freq PRN Reason Stop Dose Admin Acetaminophen 1,000 mg 04/09/25 13:31 04/10/25 09:48 Acetaminophen 500 Mg Tablet PO 1,000 mg Q6H PRN Administration Mild Pain (1-3) or Fever Al Hydrox/Mg Hydrox/Simethicone 30 ml 04/09/25 15:13 04/10/25 13:15 Mag Hydrox/Al Hydrox/Simeth 30 Ml Udc PO 30 ml Q3H PRN Administration Indigestion Dextrose 12.5 gm 04/09/25 21:43 Dextrose 50% 25 Gm/50 Ml Syringe IV PUSH PRN PRN Hypoglycemia Protocol Glucagon 1 mg 04/09/25 21:43 Glucagon For Inj 1 Mg Vial IM PRN PRN Hypoglycemia Protocol Glucose 15 gm 04/09/25 21:43 Glucose Oral Gel 15 Gm Of Glucse In 37.5 Gm Tube PO PRN PRN Hypoglycemia Protocol Sodium Chloride 1,000 mls @ 125 mls/hr 04/09/25 12:55 04/10/25 06:08 Normal Saline Iv IV CONT 125 mls/hr .Q8H BRITTNY Administration Dextrose 1,000 mls @ 100 mls/hr 04/09/25 21:43 Dextrose 5% 1,000 Ml IVPB PRN PRN Hypoglycemia Protocol Insulin Aspart 3 - 6 units 04/10/25 08:00 04/10/25 13:18 Insulin Aspart (*Bkc) 100 Units/Ml SUB-Q 3 units TIDWM BRITTNY Administration Protocol Insulin Aspart 1 - 3 units 04/10/25 21:00 Insulin Aspart (*Bkc) 100 Units/Ml SUB-Q HS [facility] Protocol Ondansetron HCl 4 mg 04/09/25 12:55 04/10/25 14:40 Ondansetron Inj 4 Mg/2 Ml Vial IV PUSH 4 mg Q4H PRN Administration Nausea Oxycodone HCl 2.5 mg 04/09/25 13:31 04/09/25 17:59 Oxycodone Hcl (*Crx) 2.5 Mg Tab Ir PO 2.5 mg Q4H PRN Administration Pain Rated 4-6 Pantoprazole Sodium 40 mg 04/09/25 17:00 04/10/25 09:46 Pantoprazole Sodium Iv 40 Mg Vial IV PUSH 40 mg BID BRITTNY Administration Radiology Results: ITS Impressions Abdomen/Pelvis CT 04/09/25 09:21 IMPRESSION: 1. Wall thickening of proximal duodenum with adjacent mild inflammatory stranding suspicious for either duodenitis or with differential including acute interstitial pancreatitis and would correlate with lipase levels. 2. Small sliding-type hiatal hernia versus distal esophageal wall thickening is as can be seen with reflux esophagitis or sequela of vomiting. 3. Diffuse hepatic steatosis. Pelvis Ultrasound 04/10/25 11:53 IMPRESSION: 1. Residual inflammatory stranding or phlegmonous change at the site of a reportedly recently ruptured and draining abscess. No residual abscess cavity appreciated. Labs Labs: Laboratory Results - last 24 hr 04/09/25 04/09/25 04/10/25 08:13 16:44 04:59 WBC 11.0 H RBC 4.87 Hgb 13.6 L Hct 41.0 L MCV 84.2 MCH 27.9 MCHC 33.2 RDW 12.8 Plt Count 259 MPV 9.2 Immature Gran % (Auto) 0.5 Neut % (Auto) 73.0 Lymph % (Auto) 18.9 Kemper % (Auto) 7.1 Eos % (Auto) 0.2 Baso % (Auto) 0.3 Lymph # (Auto) 2.08 Kemper # (Auto) 0.8 H Eos # (Auto) 0.0 Baso # (Auto) 0.0 Abs Immat Gran (auto) 0.05 H Absolute Neuts (auto) 8.1 H Absolute Nucleated RBC 0.000 Nucleated RBC % 0.0 Sodium 138 135 L Potassium 3.8 3.6 Chloride 103 104 Carbon Dioxide 24 21 L Anion Gap 11 10 BUN 12 13 Creatinine 0.71 0.64 L Estim Creat Clear Calc 113 125 Estimated GFR > 60 > 60 Glucose 229 H 231 H POC Capillary Glucose Hemoglobin A1c 10.8 H Calcium 8.7 8.1 L Magnesium 2.0 Beta-Hydroxybutyrate/Acetoacetate 0.73 H 04/10/25 04/10/25 04/10/25 07:34 10:49 12:04 WBC RBC Hgb Hct MCV MCH MCHC RDW Plt Count MPV Immature Gran % (Auto) Neut % (Auto) Lymph % (Auto) Kemper % (Auto) Eos % (Auto) Baso % (Auto) Lymph # (Auto) Kemper # (Auto) Eos # (Auto) Baso # (Auto) Abs Immat Gran (auto) Absolute Neuts (auto) Absolute Nucleated RBC Nucleated RBC % Sodium Potassium Chloride Carbon Dioxide Anion Gap BUN Creatinine Estim Creat Clear Calc Estimated GFR Glucose POC Capillary Glucose 222 H 200 H 196 H Hemoglobin A1c Calcium Magnesium Beta-Hydroxybutyrate/Acetoacetate 04/10/25 12:24 WBC RBC Hgb Hct MCV MCH MCHC RDW Plt Count MPV Immature Gran % (Auto) Neut % (Auto) Lymph % (Auto) Kemper % (Auto) Eos % (Auto) Baso % (Auto) Lymph # (Auto) Kemper # (Auto) Eos # (Auto) Baso # (Auto) Abs Immat Gran (auto) Absolute Neuts (auto) Absolute Nucleated RBC Nucleated RBC % Sodium Potassium Chloride Carbon Dioxide Anion Gap BUN Creatinine Estim Creat Clear Calc Estimated GFR Glucose POC Capillary Glucose 201 H Hemoglobin A1c Calcium Magnesium Beta-Hydroxybutyrate/Acetoacetate Quality VTE Prophylaxis VTE prophylaxis: mechanical ordered
[2025-04-10] MEDS: INSULIN GLARGINE (*BKC) 100 UNITS/ML 18 UNITS SUB-Q (20:49)
[2025-04-11] MEDS: MAG HYDROX/AL HYDROX/SIMETH 30 ML UDC PO (03:28)
[2025-04-11 05:00] VITALS: BP 129/81; PULSE 69; RESP 16; TEMP 36.3; O2SAT 94
[2025-04-11] MEDS: SODIUM CHLORIDE 0.9% IV 1,000 ML 125 ML IV CONT ×2 (05:12)
[2025-04-11] MEDS: PANTOPRAZOLE SODIUM IV 40 MG VIAL IV PUSH (08:19)
[2025-04-11 08:26] VITALS: RESP 16; O2SAT 94
[2025-04-11] MEDS: INSULIN ASPART (*BKC) 100 UNITS/ML SUB-Q (11:39)
--- NOTE | 2025-04-11 13:58 | PM.DS ---
DS: Admitting Diagnosis Discharge Date 04/11/2025 Admitting Diagnosis Duodenitis DS: Discharge Diagnosis Discharge Diagnosis (1) Duodenitis: Code(s): K29.80 - Duodenitis without bleeding Status: Acute (2) Vomiting: Qualifiers: Nausea presence: with nausea Vomiting type: unspecified Qualified Code(s): R11.2 - Nausea with vomiting, unspecified Code(s): R11.10 - Vomiting, unspecified Status: Acute (3) Hyperglycemia: Code(s): R73.9 - Hyperglycemia, unspecified Status: Acute (4) Abscess of right groin: Code(s): L02.214 - Cutaneous abscess of groin Status: Acute DS: Summary Hospital Course Reason for hospitalization: Nausea and Vomiting Hospital Course: 44 y/o M with PMH of asthma presents here with nausea and vomiting. The patient presents here from home on 04/09 for further evaluation of nausea and vomiting. He reports he has been throwing up for the past 24 hours - started Monday. Nausea and vomiting are accompanied by abdominal distension. He denies fever, chills, body aches, constipation, diarrhea, fatigue. He reports GI a history significant for GERD. for which he is post take an ulcer medication but has not been compliant with this for the past month. Of note, he recently had a tooth that was causing issues. He he was started on antibiotics and has been taking ibuprofen 800 mg and Tylenol 1G rotating for the pain and had tooth pulled yesterday. He reports he was taking a lot of NSAIDs prior to the procedure. Initial VS at presentation: 97.7? F, HR 75, R 20, 174/106, and 94% on RA. ED workup showed: WBC 10.7, no anemia, sodium 134, creatinine 0.78 and GFR >60, glucose 345, initial lactic 3.4 -> 1.5, glucose 345, gap 21, and UA showed a high specific gravity with 3+ glucose and 4+ ketones. CT of the abdomen/ pelvis showed wall thickening of the proximal duodenum with adjacent mild inflammatory stranding suspicious for either duodenitis or acute interstitial pancreatitis, small sliding type hiatal hernia versus distal esophageal wall thickening, diffuse hepatic steatosis. Patient was seen by Gastroenterology for acute epigastric pain. The agree that pain is likely compatible with gastro duodenal injury secondary to prolonged NSAID use. Initial plan was to administer Mylanta every 2-3 hours as needed for pain along with scheduling an EGD. EGD was obtained on 04/10 which showed reflux esophagitis, moderate diffuse chronic superficial gastritis, and unspecified duodenal ulcers. Gastroenterology cleared patient for discharge from a GI standpoint, recommending a 6 week course of double dose PPI along with scheduling an appointment with our office in 1 month. They recommended continuing pantoprazole 40 mg b.i.d. for 2 months, then maintaining on pantoprazole 40 mg once daily, 1/2 before breakfast be on that. From 04/10 to 04/11, patient was able to advance diet as tolerated without any nausea or vomiting. Patient endorsed feeling significantly improved on 04/11. Patient is otherwise hemodynamically stable for discharge at this time. Plan for patient to follow-up in the outpatient setting with GI in 1 month. Status at Discharge Functional status at discharge: independent ambulation Overall status at discharge: patient is back to baseline Time Spent with Patient Time attestation: Total time spent providing and/or coordinating discharge services: 41 Exam Const: Other: , male, nontoxic appearance Cardio: Other: S1-S2 present without murmur, rub, ectopy GI: Other: abdomen soft, mildly rounded, tender in the epigastric region. Normoactive bowel sounds in all quadrants. Neuro: Other: A&O x4 Psych: Other: good insight and judgment, pleasant DS: Data Data Completed and Pending Pending studies at discharge: Pending at discharge 04/10/25 11:47 Surgical [PTH] Routine Labs on day of discharge: Labs from last 24 hours 04/11/25 04/11/25 04/10/25 11:26 07:03 20:17 POC Capillary Glucose 232 H 174 H 168 H 04/10/25 16:06 POC Capillary Glucose 245 H Discharge Plan Discharge Attending physician on discharge: Paulino Hdz Consulting providers: Santiago Root Discharging Clinician: Santiago Root Anticipated Discharge Date/Time: 04/11/25 13:58 Patient Disposition: Home Activity: as tolerated Diet: as tolerated Discharge Instructions: Discharge disposition: Stable Take medications as prescribed. You will be prescribed Bactrim to be taken for 7 days total for your abscess. You will also be given Pantoprazole 40mg to be taken twice daily for 2 months, then begin taking once daily after than. You will also be prescribed Metformin 1000mg to be taken twice daily for your diabetes. Monitor blood pressures Take caution while standing, rising, or moving Change positions slowly taking a break between each position change If you standing feel dizzy sit back down and take a break Encouraged to continue with yearly vaccinations Return to the emergency department if he developed sudden shortness of breath, chest pain, nausea, vomiting, upset stomach or intractable diarrhea Return to the emergency department if you develop fever greater than 101.5 Follow-up with the primary care physician within 1-2 weeks regarding your draining abscess. You will also need to follow up with your primary care physician regarding your new onset diagnosis of Diabetes. You will need a follow up A1C checked in 3 months. Follow up with GI in 1 month. Thank you for choosing [facility] for your healthcare needs Patient Instructions: Antibiotic Form, Diet for Stomach Ulcers and Gastritis (ED), Type 2 Diabetes in Adults: New Diagnosis (DC), Basic Carbohydrate Counting (DC) Patient Language: Belgian Stand Alone Forms: General Discharge Information Follow-up/Referrals: Rachel,SIMON Dodson [Primary Care Provider] - Solomon Merino MD [Physician] - Discharge Medications: New pantoprazole 40 mg tablet,delayed release (DR/EC) 40 mg PO BID 56 Days Qty: 112 0RF sulfamethoxazole-trimethoprim [Bactrim] 400-80 mg tablet 1 tablet PO HS 7 Days Qty: 7 0RF metformin 1,000 mg tablet 1,000 mg PO BID 30 Days Qty: 60 0RF (DME) Accu-Chek Guide test strips Strip See Rx Instructions .Route Qty: 50 0RF Rx Instructions: As directed (DME) blood-glucose meter [Accu-Chek Guide Glucose Meter[place] [facility] [place] .Route Qty: 1 0RF Rx Instructions: As directed insulin glargine [Lantus Solostar U-100 Insulin] 100 unit/mL (3 mL) insulin pen 10 unit subcut QPM Qty: 15 0RF Continued pseudoephedrine HCl 30 mg tablet 30 mg PO Q4-6H PRN (Reason: nasal congestion) Qty: 48 0RF Rx Instructions: DNExceed 4 doses/24h Discontinued esomeprazole magnesium [Nexium] 20 mg capsule,delayed release(DR/EC) 40 mg PO DAILY Date of admission: 04/09/25 12:56 Primary Care Provider: Rachel,Kenny Potts Admitting Provider: Ijeoma Blanton Attending physician on admission: Ijeoma Blanton Condition: Stable
[2025-04-11 14:20] VITALS: BP 146/86; PULSE 75; RESP 16; TEMP 36.3; O2SAT 100
--- NOTE | 2025-04-15 08:29 | PC.NURSE ---
Outpt MNT referral started and [facility] and to PCP- SIMON Bhatia.
== END 2025-04-11 15:05 | disposition home or self-care (01) ==
LOC: ANHED 12:59 → ANH2MED 04-10 06:11
PROVIDERS: Internal Medicine Gastroenterology; Student in an Organized Health Care Education/Training Program; Admitting Provider Internal Medicine; Emergency Provider Emergency Medicine; PCP Physician Assistant; Visit Provider Family Medicine
PROC: 0DJ08ZZ Inspection of Upper Intestinal Tract, Via Natural or Artificial Opening Endoscopic (ICD-10-PCS; CPT 43239; principal; 2025-04-10 14:30)
DX: K26.9 Duodenal ulcer, unspecified as acute or chronic, without hemorrhage or perforation (principal); K21.01 Gastro-esophageal reflux disease with esophagitis, with bleeding; K29.30 Chronic superficial gastritis without bleeding; R11.2 Nausea with vomiting, unspecified; E11.9 Type 2 diabetes mellitus without complications; L02.214 Cutaneous abscess of groin; J45.909 Unspecified asthma, uncomplicated; Z79.1 Long term (current) use of non-steroidal anti-inflammatories (NSAID); Z79.899 Other long term (current) drug therapy; Z87.891 Personal history of nicotine dependence; Z91.148 Patient's other noncompliance with medication regimen for other reason
CPT/HCPCS: 43239; 36415; 74177; 76857; 80048; 80053; 81001; 82010; 82948; 83036; 83605; 83690; 83735; 85025; 86850; 86900; 86901; 88305; 93005; 96361; 96374; 96375; 96376; 99212; 99285; A9270; G0378; G0463; J1815; J2003; J2270; J2405; J2470; J2704; J7030; J7120; Q9967